=== PATIENT | female | born 2000 | race Caucasian/White ===

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

== ENCOUNTER 2018-08-27 12:52 | Emergency (ER) | payer OTHER ==
[2018-08-27 13:32] VITALS: BP 117/66
--- NOTE | 2018-08-27 13:57 | UC ---
Abdominal Pain Female HPI - HPI Summary HPI Summary: severe lower abdominal pain since this morning pain is cramping , 8 out of 10 , no radiation nothing made it better, nothing made it worse feeling much better now no n/v/d/c , no urinary symptoms - History of Current Complaint Chief Complaint: UCGI Stated Complaint: ABDOMINAL PAIN Time Seen by Provider: 08/27/18 13:29 Hx Obtained From: Patient Hx Last Menstrual Period: August 07 ?: No Onset/Duration: Gradual Onset, Lasting Days - 1, Still Present Timing: Constant Severity Initially: Severe Severity Currently: Mild Pain Intensity: 2 Location: Suprapubic Radiates: No Character: Cramping Aggravating Factor(s): Nothing Alleviating Factor(s): Nothing Associated Signs and Symptoms: Negative: Fever, Back Pain, Constipation, Blood in Stool, Urinary Symptoms, Decreased Appetite, Vaginal Bleeding, Vaginal Discharge, Nausea, Vomiting, Diarrhea Allergies/Adverse Reactions: Allergies Allergy/AdvReac Type Severity Reaction Status Date / Time No Known Allergies Allergy Verified 08/27/18 13:32 Home Medications: Home Medications buPROPion TAB* [Wellbutrin TAB*] 150 mg PO DAILY 08/27/18 [History Confirmed 11/08] PMH/Surg Hx/FS Hx/Imm Hx Previously Healthy: Yes - Surgical History Surgical History: Yes Surgery Procedure, Year, and Place: T&A, [place]2002, [facility] [place] - Family History Known Family History: Positive: None Negative: Cardiac Disease, Hypertension, Diabetes - Social History Alcohol Use: None Substance Use Type: None Smoking Status (MU): Never Smoked Tobacco - Immunization History Most Recent Influenza Vaccination: Not the Vaccination Up to Date: Yes Review of Systems All Other Systems Reviewed And Are Negative: Yes Is Patient Immunocompromised?: No Physical Exam Triage Information Reviewed: Yes Appearance: Well-Appearing, No Pain Distress, Well-Nourished Vital Signs: Initial Vital Signs Temp 98.0 F 08/27/18 13:24 Pulse 109 08/27/18 13:24 Resp 18 08/27/18 13:24 BP 117/66 08/27/18 13:24 Pulse Ox 100 08/27/18 13:24 Vital Signs Reviewed: Yes Eye Exam: Normal Eyes: Positive: Conjunctiva Clear ENT Exam: Normal ENT: Positive: Normal ENT inspection, Hearing grossly normal, Pharynx normal Neck exam: Normal Neck: Positive: Supple, Nontender Respiratory: Positive: Chest non-tender, Lungs clear, Normal breath sounds Cardiovascular: Positive: No Murmur, Tachycardia Abdomen Description: Positive: Nontender, Soft. Negative: CVA Tenderness (R), CVA Tenderness (L), Distended, Guarding Skin Exam: Normal Abd Pain Female Course/Dx - Differential Dx/Diagnosis Provider Diagnosis: Abdominal pain Discharge - Sign-Out/Discharge Documenting (check all that apply): Patient Departure All imaging exams completed and their final reports reviewed: No Studies - Discharge Plan Condition: Stable Disposition: HOME Patient Education Materials: Abdominal Pain (ED) Forms: *Work Release Referrals: Raquel May PA [Primary Care Provider] - 7 Days Additional Instructions: cont. with rest, increase fluid, may take Ibuprofen as needed for pain please go to ED if getting worse - Billing Disposition and Condition Condition: STABLE Disposition: Home
== END 2018-08-27 13:59 | disposition home or self-care (01) ==
LOC: UCCORT 12:52
DX: R10.30 Lower abdominal pain, unspecified (principal)
CPT/HCPCS: 81003; 99211; G0463

== ENCOUNTER 2018-11-05 10:47 | Emergency (ER) | payer OTHER ==
[2018-11-05 11:13] VITALS: BP 115/89
--- NOTE | 2018-11-05 11:25 | UC ---
Throat Pain/Nasal Kennedy HPI - HPI Summary HPI Summary: 18 y/o female presents to the urgent care c/o nasal congestion and yellowish nasal discharge for the past week. Symptoms started w/ common cold and body aches and chills. Now have worsen despite taken OTC medication. Cough is productive w/ yellowish phlegm at times and moderated PND. She is concerned because her sister was recently Dx w/ bronchitis. Pt denies fever, sore throat, SOB, wheezing, chest pain, abdominal pain, N/V/D, dizziness or rash. Pt requests antibiotics since she doesn't want to symptom to worsen. Pt is UTD w/ all vaccines for her age - History of Current Complaint Chief Complaint: UCRespiratory Stated Complaint: SINUS COMPLAINT Time Seen by Provider: 11/05/18 11:05 Hx Obtained From: Patient Hx Last Menstrual Period: 10/10/18 ?: No Onset/Duration: Gradual Onset, Lasting Weeks - 1 week, Still Present, Worse Since - 3 days Severity: Moderate Pain Intensity: 4 - sinus pain Pain Scale Used: 0-10 Numeric Cough: Sputum Appears - yellowish Associated Signs & Symptoms: Positive: Sinus Discomfort, Nasal Discharge - yellowish. Negative: Dysphagia, Wheezing, Fever, Rash Related History: Seasonal Allergies - Epiglottits Risk Factors Epiglottis Risk Factors: Negative - Allergies/Home Medications Allergies/Adverse Reactions: Allergies Allergy/AdvReac Type Severity Reaction Status Date / Time No Known Allergies Allergy Verified 11/05/18 11:07 PMH/Surg Hx/FS Hx/Imm Hx Previously Healthy: Yes - Pt denies PMHX - Surgical History Surgical History: Yes Surgery Procedure, Year, and Place: T&A, [place]2002, [facility] [place] - Family History Known Family History: Positive: None - Pt denies FMHX Negative: Cardiac Disease, Hypertension, Diabetes - Social History Occupation: Student Lives: With Family Alcohol Use: None Substance Use Type: None Smoking Status (MU): Never Smoked Tobacco - Immunization History Most Recent Influenza Vaccination: Not the 2014/2015 Season Vaccination Up to Date: Yes Review of Systems All Other Systems Reviewed And Are Negative: Yes Constitutional: Positive: Negative Skin: Positive: Negative Eyes: Positive: Negative ENT: Positive: Ear Ache - B/L ear pressure, Nasal Discharge - yellowish, Sinus Congestion, Sinus Pain/Tenderness, Other - PND Respiratory: Positive: Cough - dry Cardiovascular: Positive: Negative Gastrointestinal: Positive: Negative Genitourinary: Positive: Negative Motor: Positive: Negative Neurovascular: Positive: Negative Musculoskeletal: Positive: Negative Neurological: Positive: Headache Psychological: Positive: Negative Is Patient Immunocompromised?: No Physical Exam - Summary Physical Exam Summary: Vitals: reviewed General: Well developed, well-nourished female adolescent patient with NAD. Head and face: Normocephalic and atraumatic, Positive tenderness over the frontal and maxillary sinuses. Eyes: PERRLA, EOMI x 2. Normal conjunctiva. No eye discharge. ENT: Ears and TM with normal limits. Nose: edematous and erythematous nasal mucosa with with yellowish discharge and erythematous mucosa. Pharynx with erythema, no exudate. Yellowish PND Neck: Supple, no JVD, no carotid bruits and no lymphadenopathy. Lungs: clear, no rales, no rhonchi, no wheezes. CVS: RRR, S1 and S2 present no murmurs or gallops appreciated. Abdomen: soft nontender with positive bowel sounds. Extremities: no edema noted. Neuro: WNL. Skin: warm and dry Triage Information Reviewed: Yes Vital Signs: Initial Vital Signs Temp 98.4 F 11/05/18 11:08 Pulse 86 11/05/18 11:08 Resp 16 11/05/18 11:08 BP 115/89 11/05/18 11:08 Pulse Ox 98 11/05/18 11:08 Throat Pain/Nasal Course/Dx - Course Course Of Treatment: 18 y/o female presents to the urgent care c/o nasal congestion and yellowish nasal discharge for the past week. Symptoms started w/ common cold and body aches and chills. Now have worsen despite taken OTC medication. Cough is productive w/ yellowish phlegm at times and moderated PND. She is concerned because her sister was recently Dx w/ bronchitis. Pt denies fever, sore throat, SOB, wheezing, chest pain, abdominal pain, N/V/D, dizziness or rash. Pt requests antibiotics since she doesn't want to symptom to worsen. Pt is UTD w/ all vaccines for her age. Hx obtained. Pt w/ bacterial sinusitis on examination and Pt advised symptomatic treatment. However she still requests antibiotic treatment. Pt with 1 weeks of symptoms getting worse. Pt Rx Amoxicillin PO and flonase nasal spray as directed below. Discharge instructions explained to Pt. Advised to Return to the clinic or PCP if symptoms do not improve.Pt understood and agreed with plan of care. - Differential Dx/Diagnosis Differential Diagnosis/HQI/PQRI: Influenza, Laryngitis, Otitis Media, Pharyngitis, Sinusitis, URI Provider Diagnosis: Acute bacterial sinusitis Discharge - Sign-Out/Discharge Documenting (check all that apply): Patient Departure - D/C home All imaging exams completed and their final reports reviewed: No Studies - Discharge Plan Condition: Stable Disposition: HOME Prescriptions: Amoxicillin PO (*) [Amoxicillin 500 MG CAP*] 500 mg PO Q12H #20 cap Fluticasone NASAL SPRAY 50MCG* [Flonase NASAL SPRAY 50MCG*] 2 spray BOTH NARES DAILY #1 btl Patient Education Materials: Sinusitis (ED) Referrals: Raquel May PA [Primary Care Provider] - 3 Days Additional Instructions: 1- Please increase fluid intake and rest. take full course of antibiotics to avoid resistance. Take yogurts w/ probiotics or Culturelle to protect your GI system 2-Use Flonase as directed to help drain fluid. Also buy saline drops to clear sinuses 3-Please f/u w/ your PCP in 3 days if symptoms do not improve for further management and treatment - Billing Disposition and Condition Condition: STABLE Disposition: Home
== END 2018-11-05 11:43 | disposition home or self-care (01) ==
LOC: UCCORT 10:47
DX: J01.90 Acute sinusitis, unspecified (principal); B96.89 Other specified bacterial agents as the cause of diseases classified elsewhere
CPT/HCPCS: 99211; G0463

== ENCOUNTER 2018-12-20 14:23 | Emergency (ER) | payer OTHER ==
[2018-12-20 15:41] VITALS: BP 125/88
[2018-12-20] MEDS ORDERED: Ondansetron ODT TAB* 4 MG PO ONE (15:43)
--- NOTE | 2018-12-20 16:39 | UC ---
Nausea/Vomiting/Diarrhea HPI - HPI Summary HPI Summary: 18-year-old female presents with complaints of onset of nausea yesterday. Today she has had 3 or 4 episodes of loose stool with some abdominal cramping prior to defecation. She has a decreased appetite but has been able to tolerate fluids. No known fever. She is felt a little chilled yesterday. States she has also felt a little lightheaded today. She was presently having her menses. Denies sore throat, chest pain, palpitations, shortness of breath, vomiting, blood in stool, melena, back or flank pain, dysuria, frequency, or urgency. - History of Current Complaint Chief Complaint: UCGI Stated Complaint: NAUSEA Time Seen by Provider: 12/20/18 16:02 Hx Obtained From: Patient Hx Last Menstrual Period: 12/19/18 Pain Intensity: 5 - Allergies/Home Medications Allergies/Adverse Reactions: Allergies Allergy/AdvReac Type Severity Reaction Status Date / Time No Known Allergies Allergy Verified 12/20/18 15:32 Home Medications: Home Medications Norgestimate-Eth Estradiol(NF) [Ortho Tri-Cyclen (NF)] 1 tab PO DAILY 12/20/18 [ History Confirmed 12/20/18] PMH/Surg Hx/FS Hx/Imm Hx Previously Healthy: Yes - Denies significant PMH - Surgical History Surgical History: Yes Surgery Procedure, Year, and Place: T&A, [place]2002, [facility] [place] - Family History Known Family History: Positive: Non-Contributory - Social History Occupation: Employed Full-time Lives: With Family Alcohol Use: None Substance Use Type: None Smoking Status (MU): Never Smoked Tobacco - Immunization History Most Recent Influenza Vaccination: Not the 2014/2015 Season Vaccination Up to Date: Yes Review of Systems All Other Systems Reviewed And Are Negative: Yes Constitutional: Negative: Fever, Chills Skin: Positive: Negative ENT: Positive: Negative Respiratory: Positive: Negative Cardiovascular: Positive: Negative Gastrointestinal: Positive: Abdominal Pain - cramping, Diarrhea, Nausea. Negative: Vomiting Genitourinary: Negative: Dysuria, Hematuria, Frequency, Urgency, Vaginal/Penile Discharge Musculoskeletal: Positive: Negative Neurological: Positive: Negative Is Patient Immunocompromised?: No Physical Exam - Summary Physical Exam Summary: GENERAL APPEARANCE: Well developed, well nourished, alert and cooperative, and appears to be in no acute distress. EYES: Conjunctiva clear. No drainage. EARS: External auditory canals and tympanic membranes clear, hearing grossly intact. NOSE: No nasal discharge. THROAT: Pharynx normal. Tonsils surgically absent. Uvula midline. NECK: Neck supple, non-tender without lymphadenopathy. CARDIAC: Normal S1 and S2. No S3, S4 or murmurs. Rhythm is regular. There is no peripheral edema, cyanosis or pallor. Extremities are warm and well perfused. Capillary refill is less than 2 seconds. Peripheral pulses intact. LUNGS: Clear to auscultation without rales, rhonchi, wheezing or diminished breath sounds. ABDOMEN: Positive bowel sounds. Soft, nondistended, nontender. No guarding or rebound. No masses or hepatosplenomegally. No CVA tenderness. MUSKULOSKELETAL: ROM intact to all extremities. No joint erythema or tenderness. Normal muscular development. Normal gait. SKIN: Skin normal color, texture and turgor with no lesions or eruptions. Triage Information Reviewed: Yes Vital Signs: Initial Vital Signs Temp 99 F 12/20/18 15:34 Pulse 76 12/20/18 15:34 Resp 20 12/20/18 15:34 BP 125/88 12/20/18 15:34 Pulse Ox 100 12/20/18 15:34 Vital Signs Reviewed: Yes Naus/Vom/Diarrhea Course/Dx - Course Course Of Treatment: 18-year-old female presents with complaints of onset of nausea yesterday. Today she has had 3 or 4 episodes of loose stool with some abdominal cramping prior to defecation. She has a decreased appetite but has been able to tolerate fluids. No known fever. She is felt a little chilled yesterday. States she has also felt a little lightheaded today. She was presently having her menses. Denies sore throat, chest pain, palpitations, shortness of breath, vomiting, blood in stool, melena, back or flank pain, dysuria, frequency, or urgency. Afebrile. Vital signs stable. Patient had an overall unremarkable exam. She received ondansetron 4 mg in the clinic with improvement in her nausea. [id number] urinalysis showed trace leukocytes and 3+ blood likely from her menses. Urine culture is pending. Results reviewed with the patient. She was able to tolerate by PO fluids with no further episodes of diarrhea during the course of her stay. Recommending symptomatically treatment for acute diarrhea. I have given her prescription for ondansetron 4 mg every 8 hours as needed for nausea or vomiting. She is to return here or follow-up with her primary care provider in 2-3 days if symptoms are not improving. Anticipatory guidance and warning signs regarding evaluation in the emergency room were reviewed with patient. Verbalizes understanding and agrees with plan of care. - Differential Dx/Diagnosis Differential Diagnoses - Female: Appendicitis, Constipation, Diverticulitis, Ovarian Cyst, Urinary Tract Infection, Gastroenteritis (Viral), Gastroenteritis (Bacterial), Diarrhea, Colitis Provider Diagnosis: Acute diarrhea Condition At Discharge: Stable Discharge ED - Sign-Out/Discharge Documenting (check all that apply): Patient Departure All imaging exams completed and their final reports reviewed: No Studies - Discharge Plan Condition: Stable Disposition: HOME Prescriptions: Ondansetron ODT TAB* [Zofran 4 MG Odt TAB*] 4 mg PO Q8H PRN #6 tab.odt PRN Reason: Nausea/Vomiting Patient Education Materials: Acute Diarrhea (ED) Forms: *Work Release Referrals: Raquel May PA [Primary Care Provider] - 2 Days Additional Instructions: Acute diarrhea typically resolves on its own without treatment over 2-3 days. The most important consideration with diarrhea is avoiding dehydration. Be sure to drink plenty of fluids. Avoid beverages containing caffeine or artificial sweeteners as these can worsen symptoms. You have been prescribed ondansetron 4 mg every 8 hours as needed for nausea or vomiting. You were given a dose in the clinic at 3:50 pm. Be sure to eat a well balanced diet. Boiled starches and cereals (potatoes, rice , cream of wheat, oatmeal) as well as food such as crackers, toast, bananas, soups and boiled vegetables are usually recommended if you are having watery diarrhea. Be sure to use good hand hygiene to prevent spreading infection. Use an over the counter pain medication such as acetaminophen (Tylenol) or ibuprofen (Advil, Motrin) according to directions as needed for aches and pains. Return here or follow up with your primary care provider in 2-3 days if symptoms persist. Seek immediate medical attention in the emergency room if you have fever greater than 100.5 F, have severe abdominal pain, persistent vomiting, blood in your vomit or stool, you become weak or dizzy, or have any worsening of symptoms. - Billing Disposition and Condition Condition: STABLE Disposition: Home
== END 2018-12-20 16:47 | disposition home or self-care (01) ==
LOC: UCCORT 14:23
DX: R19.7 Diarrhea, unspecified (principal)
CPT/HCPCS: 81003; 84702; 87086; 99212; A9270-GY; G0463

== ENCOUNTER 2019-01-18 14:08 | Emergency (ER) | payer OTHER ==
--- OUTSIDE RECORDS SUMMARY | 2019-01-18 16:37 | XMS REPORT | Continuity of Care Document ---
:2000 External Reference #:[id number] Author Name Raquel May PA Address [address] [place] [address] Problems Description No Information Available Social History Type Date Description Comments Sex Unknown ETOH Use Denies alcohol use Recreational Drug Use Regularly uses Marijuana Tobacco Use Start: Unknown Patient is a current smoker, smokes some days Smoking Status Reviewed: 01/07/19 Patient is a current smoker, smokes some days Allergies, Adverse Reactions, Alerts Description No Known Drug Allergies Medications Active Medications SIG Qnty Indications Ordering Date Provider Prochlorperazine Maleate 1 tablet three 30tabs R11.0 Zaid Villagomez, 01/07 10mg times daily as DO Tablets needed for nausea Ketoconazole apply to 120ml B36.0 Zaid Villagomez, 08/15/2018 2% Shampoo affected area DO of damp skin, lather, leave on 5 minutes, and rinse Bupropion Hydrochloride 1 by mouth 90tabs F32.1 Zaid Villagomez, 08/15/2018 ER (XL) every day DO 150mg Tablets ER 24HR Nystatin-Triamcinolone Apply to 60gm L30.4 Zaid Villagomez, 04/01/2018 affected area DO 403706-8.1Unit/GM-% twice daily Cream until rash resolves Buspirone HCL 1 by mouth 90tabs F41.1 Zaid Villagomez, 03/21/2018 5mg Tablets every 8 hours DO as needed for anxiety Norgestimate-Eth 1 by mouth 28tabs Z30.41 Zaid Villagomez, 11/27/2017 Estradiol every day DO 0.25-35mg-mcg Tablets Triamcinolone Acetonide apply to 30gm Zaid Villagomez, 10/31/2017 0.1% affected area DO Cream twice a day for no longer than 10 days in a row Acyclovir 1 tablet by 30tabs A60.00 Zaid Villagomez, 08/27/2017 400mg Tablets mouth three DO times daily as needed Valacyclovir HCL Take 1 Tablet 270tabs Zaid Villagomez, 08/27/2017 1gm Tablets By Mouth Three DO Times Daily as Needed Immunizations CPT Code Status Date Vaccine Reaction Lot # [id number] Given 03/21/2018 Menactra/Menveo Meningococcal Vaccine [id number] 99833 Given 03/21/2018 Meningococcal B(Bexsero)protn otrMembran [id number] Vesicle Vccn 2 dose sche Q2039 Given 03/03/2018 Flu Vaccine NOS Q2039 Given 01/05/2012 Flu Vaccine NOS 37075 Given 12/17/2009 Gardasil-9 (HPV) Nonavalent 2-[place] [address] Given 12/17/2009 Menactra/Menveo Meningococcal Vaccine 23105 Given 12/17/2009 Tdap (Adacel) Ages 7 And Above Only 29671 Given 06/14/2009 Gardasil-9 (HPV) Nonavalent 2-[place] [address] Given 06/11/2009 Gardasil-9 (HPV) Nonavalent 2-[place] [address] Given 04/01/2009 Gardasil-9 (HPV) Nonavalent 2-[place] [address] Given 07/21/2008 Hepatitis B Vac Ped/Adolescent 3 Dose Schedule 83468 Given 08/22/2007 Varicella (Chicken Pox) Immunization 09788 Given 08/22/2007 Hepatitis A, Ped/Adolescent 2 Dose NYSIIS Schedule 59671 Given 06/14/2006 Hepatitis A, Ped/Adolescent 2 Dose Schedule U-Polio Given 12/15/2003 Polio (Non Billable) Unspecified 54052 Given 12/15/2003 MMR Virus Immunization 67026 Given 12/15/2003 DTaP Immunization 7 Yrs & Younger 14017 Given 02/22/2003 Varicella (Chicken Pox) Immunization 15558 Given 02/23/2000 MMR Virus Immunization U-Polio Given 07/11/1999 Polio (Non Billable) Unspecified 48729 Given 07/11/1999 DTaP Immunization 7 Yrs & Younger 81271 Given 07/11/1999 Hib ACTHiB Vaccine 4 Dose Schedule 01863 Given 01/06/1999 Hepatitis B Vac Ped/Adolescent 3 Dose Schedule 43245 Given 01/06/1999 DTaP Immunization 7 Yrs & Younger 00919 Given 01/06/1999 Hib ACTHiB Vaccine 4 Dose Schedule 80561 Given 1998 DTaP Immunization 7 Yrs & Younger 80844 Given 1998 Hib ACTHiB Vaccine 4 Dose Schedule U-Polio Given 1998 Polio (Non Billable) Unspecified U-Polio Given 1998 Polio (Non Billable) Unspecified 03032 Given 1998 DTaP Immunization 7 Yrs & Younger 12901 Given 1998 Hib ACTHiB Vaccine 4 Dose Schedule 28903 Given 1998 Hepatitis B Vac Ped/Adolescent 3 Dose Schedule 48642 Given 1998 Hepatitis B Vac Ped/Adolescent 3 Dose Schedule 82421 Refused 08/15/2018 Meningococcal B(Bexsero)protn otrMembran Vesicle Vccn 2 dose sche Vital Signs Date Vital Result Comment 01/07/2019 9:24am Body Temperature 99.5 F Weight 168.00 lb Heart Rate 110 /min BP Systolic 122 mmHg BP Diastolic 72 mmHg Respiratory Rate 18 /min Height 67 inches 5'7" O2 % BldC Oximetry 99 % BMI (Body Mass Index) 26.3 kg/m2 08/26/2018 2:55pm Weight 154.00 lb Heart Rate 78 /min BP Systolic 120 mmHg BP Diastolic 80 mmHg Respiratory Rate 18 /min Height 67 inches 5'7" BMI (Body Mass Index) 24.1 kg/m2 Results Test Date Facility Test Result H/L Range Note Laboratory test 12/20/2018 [facility] Poc Negative Negative 1 finding , Urine Urine Culture And 12/20/2018 [facility] Urine SEE RESULT 2 , 3 Sensitivities Culture BELOW Poc Urinalysis 12/20/2018 [facility] Poc Glucose, Negative Negative Urine Poc Bilirubin, Urine Negative Negative Poc Ketone, Urine Negative Negative Poc Specific [place], Urine 1.015 Normal 1.010-1.030 Poc Blood, Urine 3+ Abnormal Negative Poc pH, Urine 6.5 Normal 5-9 Poc Protein, Urine Negative Negative Poc Urobilinogen, Urine 0.2 Negative Poc Nitrite, Urine Negative Negative Poc Leukocytes, Urine Trace Abnormal Negative Poc Color, Urine [place] Poc Clarity, Urine Slightly Cloudy 4 1 [employer] Operator: [id number] Test Disclaimer: Positive bacteria, red blood cells, white blood cells, early , low specific gravity, and other factors may cause false positive or negative results. It is recommended to retest unexpected and borderline results with a serum test when applicable. If is still suspected, please repeat test after 48 to 72 hours. 2 [id number] SEE RESULT BELOW Name: LAZARO RODRIGUEZ : [address]: Chayo Berman MD Acct: [id number] Unit: [id number] AGE: 18 Location: [facility] Re12/20/18 SEX: F Status: DEP ER SPEC: [id number] JAN: 12/20/18-3949 [facility] DR: Clarisa Simon MD REQ: [id number] RECD: 12/21/18599 STATUS: LUIS ROMAN DR: Raquel Brand [facility] _ SOURCE: URINE SPDESC: ORDERED: Urine Culture COMMENTS: [id number] Procedure Result Reported Site Urine Culture Final 12/22/18- 1225 ML No Growth (<1,000 CFU/mL) * ML - Main Lab . END OF REPORT DEPARTMENT OF PATHOLOGY, [address] [place] [address] Thong Galdamez M.D. Director [facility] # [id number] 4 [employer] Operator: [id number] Procedures Date Code Description Status 08/15/2018 78830 Brief Emotional/Behav Assessment W/ Scoring Doc Per Completed Standard Inst Medical Devices Description No Information Available Encounters Type Date Location Provider Dx Diagnosis Office Visit 08/26/2018 [facility] Raquel May PA M25.512 Pain in LEFT 3:00p shoulder M25.512 Pain in LEFT shoulder Office Visit 08/15/2018 11:30a [facility] Raquel May PA B36.0 Pityriasis versicolor F32.1 Major depressive disorder, single episode, moderate Assessments Date Code Description Provider 01/07/2019 F32.1 Major depressive disorder, single episode, Raquel May PA moderate 01/07/2019 F41.1 Generalized anxiety disorder Raquel May PA 01/07/2019 N94.3 Premenstrual tension syndrome Raquel May PA 01/07/2019 R11.0 Nausea Raquel May PA 01/07/2019 N94.3 Premenstrual tension syndrome Schedule, Laboratory 08/26/2018 M25.512 Pain in LEFT shoulder Raquel May PA 08/26/2018 M25.512 Pain in LEFT shoulder Raquel May PA 08/15/2018 B36.0 Pityriasis versicolor Raquel May PA 08/15/2018 F32.1 Major depressive disorder, single episode, Raquel May PA moderate Plan of Treatment 01/07/2019 - Raquel May, PAF32.1 Major depressive disorder, single episode , moderateComments:Worsening off of medicationWill resume bupropionAdvised may take 2-4 weeks to notice improvementFollow up:PrnF41.1 Generalized anxiety disorderComments:Advised to resume cffrnhedfM86.3 Premenstrual tension syndromeComments:Will check labs for evalSuggest trying different OCPR11.0 NauseaNew Medication:Prochlorperazine Maleate 10 mg - 1 tablet three times daily as needed for nauseaComments:Randolph dietProchlorperazine to help with nauseaPush fluidsCall with worsening/persisting symptoms Functional Status Description No Information Available Mental Status Description No Information Available Referrals Description No Information Available
[2019-01-18 16:51] VITALS: BP 132/86
--- NOTE | 2019-01-18 17:12 | UC ---
FLU HPI - HPI Summary HPI Summary: 18-year-old female presents with 2 week history of flu-like illness including general malaise, fatigue, swollen lymph nodes, mild sore throat, muscle aches, upper abdominal pain, and nausea. Patient states she was seen by her primary care provider last week for the same and was tested for anemia. She is requesting testing for Lyme disease at this time. No known tick bite but states she is outdoors often. Denies fever, chills, rash, nasal congestion, runny nose, ear pain, dysphagia, cough, chest pain, shortness of breath, vomiting, diarrhea, dysuria, frequency, urgency, or vaginal discharge. - History of Current Complaint Chief Complaint: UCGeneralIllness Stated Complaint: FLU LIKE SYMPTOMS Time Seen by Provider: 01/18/19 17:02 Hx Obtained From: Patient Hx Last Menstrual Period: 01/13/19 Pain Intensity: 5 - Allergy/Home Medications Allergies/Adverse Reactions: Allergies Allergy/AdvReac Type Severity Reaction Status Date / Time No Known Allergies Allergy Verified 01/18/19 16:40 Home Medications: Home Medications Ibuprofen TAB* [Advil TAB*] 400 mg PO Q6H PRN 01/18/19 [History Confirmed ] buPROPion HCl [Bupropion HCl Xl] 150 mg PO DAILY 01/18/19 [History Confirmed ] busPIRone TAB* [Buspar TAB*] 5 mg PO DAILY PRN 01/18/19 [History Confirmed 01/18] PMH/Surg Hx/FS Hx/Imm Hx Previously Healthy: Yes - Surgical History Surgical History: Yes Surgery Procedure, Year, and Place: T&A, ~2002, [facility] [place] - Family History Known Family History: Positive: Non-Contributory - Social History Occupation: Unemployed Lives: With Family Alcohol Use: None Substance Use Type: None Smoking Status (MU): Never Smoked Tobacco - Immunization History Most Recent Influenza Vaccination: Not the 2015/2015 Season Vaccination Up to Date: Yes Review of Systems All Other Systems Reviewed And Are Negative: Yes Constitutional: Negative: Fever, Chills Skin: Negative: Rash ENT: Positive: Sore Throat. Negative: Ear Ache, Nasal Discharge, Sinus Congestion, Sinus Pain/Tenderness Respiratory: Negative: Shortness Of Breath, Cough Cardiovascular: Negative: Palpitations, Chest Pain Gastrointestinal: Positive: Abdominal Pain, Nausea. Negative: Vomiting, Diarrhea Genitourinary: Negative: Dysuria, Hematuria, Frequency, Urgency, Vaginal/Penile Discharge, Abnormal Bleeding Musculoskeletal: Positive: Myalgia Neurological: Positive: Headache. Negative: Weakness, Paresthesia, Numbness Is Patient Immunocompromised?: No Physical Exam - Summary Physical Exam Summary: GENERAL APPEARANCE: Well developed, well nourished, alert and cooperative, and appears to be in no acute distress. EYES: Conjunctiva clear. No drainage. EARS: External auditory canals and tympanic membranes clear, hearing grossly intact. NOSE: No nasal discharge. THROAT: Pharynx normal. Surgically absent tonsils. Uvula midline. NECK: Neck supple, non-tender without lymphadenopathy. CARDIAC: Normal S1 and S2. No S3, S4 or murmurs. Rhythm is regular. There is no peripheral edema, cyanosis or pallor. Extremities are warm and well perfused. Capillary refill is less than 2 seconds. Peripheral pulses intact. LUNGS: Clear to auscultation without rales, rhonchi, wheezing or diminished breath sounds. ABDOMEN: Positive bowel sounds. Soft, nondistended abdomen. Mild RUQ and LUQ tenderness without guarding or rebound. No masses or hepatosplenomegally. MUSKULOSKELETAL: ROM intact to all extremities. No joint erythema or tenderness. Normal muscular development. Normal gait. SKIN: Skin normal color, texture and turgor with no lesions or eruptions. Triage Information Reviewed: Yes Vital Signs: Initial Vital Signs Temp 98.8 F 01/18/19 16:43 Pulse 87 01/18/19 16:43 Resp 16 01/18/19 16:43 BP 132/86 01/18/19 16:43 Pulse Ox 97 01/18/19 16:43 Vital Signs Reviewed: Yes Flu Course/Dx - Course Course Of Treatment: 18-year-old female presents with 2 week history of flu-like illness including general malaise, fatigue, swollen lymph nodes, mild sore throat, muscle aches, upper abdominal pain, and nausea. Patient states she was seen by her primary care provider last week for the same and was tested for anemia. She is requesting testing for Lyme disease at this time. No known tick bite but states she is outdoors often. Denies fever, chills, rash, nasal congestion, runny nose, ear pain, dysphagia, cough, chest pain, shortness of breath, vomiting, diarrhea, dysuria, frequency, urgency, or vaginal discharge. Afebrile. Vital signs stable. Patient had some mild right upper quadrant and left upper quadrant tenderness without rebound or guarding, no hepatosplenomegaly, and otherwise unremarkable exam. We discussed that I don't have a good explanation for her symptoms at this time but we will perform testing for post Lyme disease and mononucleosis to rule out these causes. Recommending symptomatic treatment at this time. She is to follow-up with her primary care provider within 5 days for recheck of symptoms. Anticipatory guidance and warning symptoms were reviewed with the patient. Verbalized understanding and agrees with plan of care. - Differential Dx/Diagnosis Differential Diagnosis/HQI/PQRI: Other - Lyme disease, mononucleosis Provider Diagnosis: Malaise and fatigue Discharge ED - Sign-Out/Discharge Documenting (check all that apply): Patient Departure All imaging exams completed and their final reports reviewed: No Studies - Discharge Plan Condition: Stable Disposition: HOME Patient Education Materials: Fatigue (ED) Referrals: Raquel May PA [Primary Care Provider] - 5 Days Additional Instructions: Do not have a good explanation for your symptoms at this time. We we'll test you for both line and mono today. We will contact you if I therapies are positive. Plenty of rest. Drink plenty of fluids. Take acetaminophen (Tylenol) or ibuprofen (Advil, Motrin) according to directions as needed for aches pain or fever. Follow-up with your primary care provider within the next 5 days for a recheck of her symptoms. Seek immediate medical attention in the emergency room if you develop a fever greater than 100.5 F, have chest pain, difficulty breathing, severe abdominal pain, persistent or projectile vomiting, blood in your vomit or bowel movement, or any worsening of symptoms. - Billing Disposition and Condition Condition: STABLE Disposition: Home
== END 2019-01-18 17:29 | disposition home or self-care (01) ==
LOC: UCCORT 14:08
DX: R53.81 Other malaise (principal); R53.83 Other fatigue
CPT/HCPCS: 36415; 86308; 86618; 99211; G0463

== ENCOUNTER 2019-03-30 11:36 | Emergency (ER) | payer OTHER ==
--- OUTSIDE RECORDS SUMMARY | 2019-03-30 12:15 | XMS REPORT | Continuity of Care Document ---
:2000 External Reference #:[id number] Author Name Raquel May PA Address [address] [place] [id number] Problems Description No Information Available Social History [...] Medications SIG Qnty Indications Ordering Date Provider Fluconazole 1 tablet by 2tabs Zaid Villagomez, 03/14/2019 200mg Tablets mouth once DO daily for 1 week Selenium Sulfide apply to 180ml B36.0 Zaid Villagomez, 02/11/2019 2.25% affected areas DO Shampoo and lather with water; leave on for 10 minutes, then rinse thoroughly; repeat daily x 1 week Alprazolam 1 by mouth 15tabs F41.1 Zaid Villagomez, 02/11/2019 0.25mg Tablets daily as needed DO anxiety Prochlorperazine Maleate 1 tablet three 30tabs R11.0 Zaid Villagomez, 01/07 10mg times daily as DO Tablets needed for nausea Nystatin-Triamcinolone Apply to 60gm L30.4 Zaid Villagomez, 04/01/2018 affected area DO 708991-6.1Unit/GM-% twice daily Cream until rash resolves Buspirone HCL 1 by mouth 90tabs F41.1 Zaid Villagomez, 03/21/2018 5mg Tablets every 8 hours DO as needed for anxiety Acyclovir 1 tablet by 30tabs A60.00 Zaid Villagomez, 08/27/2017 400mg Tablets mouth three DO times daily as needed Valacyclovir HCL Take 1 Tablet 270tabs Zaid Villagomez, 08/27/2017 1gm Tablets By Mouth Three DO Times Daily as Needed History Medications Amoxicillin 1 pill by 14tabs J01.90 Zaid Villagomez, 02/11/2019 - 875mg mouth twice a DO 02/18/2019 Tablets day x 7 days Venlafaxine HCL ER 1 by mouth 30caps Zaid Villagomez, 01/09/2019 - 75mg every day DO 03/14/2019 Caps ER 24HR Immunizations CPT Code Status Date Vaccine Reaction Lot # [id number] Given 03/21/2018 Menactra/Menveo Meningococcal Vaccine [id number] 95578 Given 03/21/2018 Meningococcal B(Bexsero)protn otrMembran [id number] Vesicle Vccn 2 dose sche Q2039 Given 03/03/2018 Flu Vaccine NOS Q2039 Given 01/05/2012 Flu Vaccine NOS 28209 Given 12/17/2009 Gardasil-9 (HPV) Nonavalent 2-[place] [address] Given 12/17/2009 Menactra/Menveo Meningococcal Vaccine 35099 Given 12/17/2009 Tdap (Adacel) Ages 7 And Above Only [address] Given 06/14/2009 Gardasil-9 (HPV) Nonavalent 2-[place] [address] Given 06/11/2009 Gardasil-9 (HPV) Nonavalent 2-[place] [address] Given 04/01/2009 Gardasil-9 (HPV) Nonavalent 2-[place] [address] Given 07/21/2008 Hepatitis B Vac Ped/Adolescent 3 Dose Schedule 55134 Given 08/22/2007 Varicella (Chicken Pox) Immunization 54230 Given 08/22/2007 Hepatitis A, Ped/Adolescent 2 Dose NYSIIS Schedule 27124 Given 06/14/2006 Hepatitis A, Ped/Adolescent 2 Dose Schedule U-Polio Given 12/15/2003 Polio (Non Billable) Unspecified 59610 Given 12/15/2003 MMR Virus Immunization 86727 Given 12/15/2003 DTaP Immunization 6 Yrs & Younger 03012 Given 02/22/2003 Varicella (Chicken Pox) Immunization 89897 Given 02/23/2000 MMR Virus Immunization U-Polio Given 07/11/1999 Polio (Non Billable) Unspecified 83759 Given 07/11/1999 DTaP Immunization 6 Yrs & Younger 21107 Given 07/11/1999 Hib ACTHiB Vaccine 4 Dose Schedule 59355 Given 01/06/1999 Hepatitis B Vac Ped/Adolescent 3 Dose Schedule 29500 Given 01/06/1999 DTaP Immunization 6 Yrs & Younger [address]4450 Given 01/06/1999 Hib ACTHiB Vaccine 4 Dose Schedule 45343 Given 1998 DTaP Immunization 6 Yrs & Younger 72880 Given 1998 Hib ACTHiB Vaccine 4 Dose Schedule U-Polio Given 1998 Polio (Non Billable) Unspecified U-Polio Given 1998 Polio (Non Billable) Unspecified 37059 Given 1998 DTaP Immunization 6 Yrs & Younger 35459 Given 1998 Hib ACTHiB Vaccine 4 Dose Schedule 36376 Given 1998 Hepatitis B Vac Ped/Adolescent 3 Dose Schedule 51146 Given 1998 Hepatitis B Vac Ped/Adolescent 3 Dose Schedule 08859 Refused 08/15/2018 Meningococcal B(Bexsero)protn otrMembran Vesicle Vccn 2 dose sche Vital Signs Date Vital Result Comment 03/14/2019 9:24am Weight 175.00 lb Heart Rate 72 /min BP Systolic 126 mmHg BP Diastolic 70 mmHg Respiratory Rate 18 /min Height 67 inches 5'7" BMI (Body Mass Index) 27.4 kg/m2 02/11/2019 9:35am Body Temperature 98.6 F Weight 165.00 lb Heart Rate 78 /min BP Systolic 128 mmHg BP Diastolic 74 mmHg Respiratory Rate 18 /min Height 67 inches 5'7" BMI (Body Mass Index) 25.8 kg/m2 Results Test Acquired Date Facility Test Result H/L Range Note Drugs Of 02/11/2019 [facility] Amphetamines,Ur NEGATIVE <1000 ng/mL Abuse,Urine-[facility] ine Barbiturates,Urine NEGATIVE <200 ng/mL Benzodiazepines, Urine NEGATIVE <200 ng/mL Bupernorphrine/Norbu,Urine NEGATIVE <10 ng/mL Cocaine Metabolites,Urine NEGATIVE <300 ng/mL Methadone,Urine NEGATIVE <300 ng/mL Opiates,Urine NEGATIVE <300 ng/mL Oxycodone,Urine NEGATIVE <100 ng/mL Phencyclidine,Urine NEGATIVE <25 ng/mL Cannabinoids,Urine POSITIVE Abnormal <50 ng/mL Urine Culture 01/28/2019 [facility] Urine Culture MIXED URETHRAL F 1, 2 (315)- - <SEE NOTE> Quantity > 100,000 CFU/mL 3 Laboratory test 01/28/2019 [facility] HIV Screen Non Reactive Non Reactive 4 finding (315)- - 4TH Gen Reflex Laboratory test 01/28/2019 [facility] CK 54 U/L Normal 26-192 finding (315)- - Troponin-I < 0.015 ng/mL 5 Comprehensive 01/28/2019 [facility] Glucose 90 mg/dL Normal 74-106 Metabolic Panel (315)- - BUN 12 mg/dL Normal 7-18 Creatinine 1.1 mg/dL Normal 0.6-1.3 Glom Filtration Rate, Estimate >60 mL/min >60 If >60 mL/min >60 6 BUN/Creat 10.9 ratio Sodium 140 mmol/L Normal 136-145 Potassium 3.5 mmol/L Normal 3.5-5.1 Chloride 103 mmol/L Normal 98-107 Carbon Dioxide 25 mmol/L Normal 21-32 Anion Gap 12 mEq/L Normal 8-16 Calcium 9.0 mg/dL Normal 8.5-10.1 Total Protein 8.5 g/dL High 6.4-8.2 Albumin 4.7 g/dL Normal 3.4-5.0 Globulin 3.8 g/dL Normal 1.9-4.3 Alb/Glob 1.2 ratio Bilirubin,Total 0.6 mg/dL Normal 0.2-1.0 Sgot/Ast 9 U/L Low 15-37 7 SGPT/Alt 18 U/L Normal 12-78 Alkaline Phosphatase 69 U/L Normal 45-117 Culture If 01/28/2019 [facility] Culture If CULTURE TO 8 Indicated Comment (315)- - Indicated Comment FOLLO <SEE NOTE> Source: URINE, CLEAN CAT <SEE NOTE> 9 Urinalysis With 01/28/2019 [facility] Urine Color Dark- Yellow Yellow Microscopic (315)- - Urine Clarity Slightly Cloudy Clear Urine Glucose - Dipstick NEGATIVE mg/dL Negative Urine Bilirubin - Dipstick NEGATIVE Negative Urine Ketone 10 mg/dL Abnormal Negative Urine Specific [place] 1.037 High 1.010-1.030 Urine Blood NEGATIVE 0-2 Urine PH 6.0 Low 6.5-7.5 Urine Protein - Dipstick 70 mg/dL Abnormal Negative Urine Urobilinogen - Dipstick 3.0 mg/dL < 2.0 Urine Nitrite - Dipstick NEGATIVE Negative Urine Leuk Esterase SMALL Abnormal Negative Urine RBC 11-20 rbc/hpf 0-2 Urine WBC 21-30 wbc/hpf 0-5 Urine Epithelial Cells MANY /lpf None Seen Urine Bacteria MODERATE Abnormal None Seen Urine Mucus LARGE None Seen Source: URINE, CLEAN CAT <SEE NOTE> 10 Urine HCG 01/28/2019 [facility] Urine HCG NEGATIVE Negative 11 (Qualitative) (315)- - (Qualitative) Source: URINE, CLEAN CAT <SEE NOTE> 12 CBS W/Automated 01/28/2019 [facility] White Blood 4.5 K/ uL Normal 3.1-10.7 Diff (315)- - Count Red Blood Count 5.34 M/uL Normal 3.90-5.40 Hemoglobin 15.9 gm/dL High 11.6-15.8 Hematocrit 46.9 % High 36.0-46.1 Mean Cell Volume 87.8 fl Normal 80.9-99.0 Mean Corpuscular HGB 29.8 pg Normal 25.9-32.7 Mean Corpuscular HGB Conc 33.9 g/dL Normal 30.8-34.3 Platelet Count 289 K/uL Normal 155-360 Red Cell Distri Width SD 40.4 fl Normal 36-47 Red Cell Distri Width %CV 12.6 % Normal 11.7-14.4 Mean Platelet Volume 10.2 fl Normal 8.9-12.4 Neut% 48.2 % Normal 28.0-68.0 Lymph % 41.1 % Normal 20.0-42.0 Early % 9.4 % Normal 4.3-13.2 Eo% 0.9 % Normal 0.0-6.6 Bas% 0.2 % Normal 0.0-1.1 Immature Grans 0.2 % Normal 0.0-5.0 NRBC % 0.0 /100WBC < 10/ 100 WBC Neut# 2.16 K/uL Normal 1.8-7.0 Lymph # 1.84 K/uL Normal 1.0-4.0 Early # 0.42 K/uL Normal 0.3-0.9 Eos # 0.04 K/uL Normal 0.0-0.5 Baso # 0.01 K/uL Normal 0.0-0.1 Immature Grans Absolute 0.01 K/uL NRBC # 0.00 K/uL Laboratory test 01/18/2019 [facility] Monospot Negative Negative 13, 14 finding Lyme Screen w/ Reflex to WB Negative Negative 15 Urine HCG 01/08/2019 [facility] Urine HCG NEGATIVE Negative 16, 17 (Qualitative) (315)- - (Qualitative) Source: URINE, CLEAN CAT <SEE NOTE> 18 Urinalysis With 01/08/2019 [facility] Urine Color Yellow Yellow Microscopic (315)- - Urine Clarity Clear Clear Urine Glucose - Dipstick NEGATIVE mg/dL Negative Urine Bilirubin - Dipstick NEGATIVE Negative Urine Ketone 150 mg/dL Abnormal Negative Urine Specific [place] 1.028 Normal 1.010-1.030 Urine Blood NEGATIVE 0-2 Urine PH 6.0 Low 6.5-7.5 Urine Protein - Dipstick TRACE mg/dL Negative Urine Urobilinogen - Dipstick 2.0 mg/dL < 2.0 Urine Nitrite - Dipstick NEGATIVE Negative Urine Leuk Esterase TRACE Abnormal Negative Urine RBC 3-5 rbc/hpf 0-2 Urine WBC 3-5 wbc/hpf 0-5 Urine Epithelial Cells MANY /lpf None Seen Urine Bacteria FEW None Seen Urine Mucus MODERATE None Seen Source: URINE, CLEAN CAT <SEE NOTE> 19 CBC with Auto Diff-fcmg 01/07/2019 [facility] 9.4 K/uL 4.1-11.0 RBC 4.89 M/uL 4.00-5.40 Hemoglobin 14.9 gm/dL 12.0-16.0 Hematocrit 43.5 % 36.0-47.0 MCV 88.9 fL 80.0-97.0 MCH 30.6 pg 27.0-32.0 MCHC 34.4 g/dL 32.0-36.0 RDW 13.7 % 11.5-14.5 PLT Count 283 K/ul 140-400 MPV 8.9 FL 7.1-10.7 Neutrophil 80.6 % High 35.0-75.0 Lymphocyte 13.4 % Low 16.0-52.0 Monocyte 5.5 % 2.0-10.0 Eosinophil 0.2 % 0.0-5.0 Basophil 0.3 % 0.0-4.0 Abs Neutrophils 7.6 K/uL 2.1-8.0 Abs Lymphocytes 1.3 K/uL 0.8-5.5 Abs Monocytes 0.5 K/uL 0.1-1.0 Abs Eosinophils 0.0 K/uL 0.0-0.5 Abs Basophils 0.0 K/uL 0.0-0.3 Comprehensive Met Panel-FCMG 01/07/2019 [facility] Sodium 139 mmol/L 135- 146 20 Potassium 4.2 mmol/L 3.5-5.2 Chloride# 102 mmol/L 97-110 21 Carbon Dioxide 25 mmol/L 24-34 Calcium 9.7 mg/dL 8.5-10.5 22 Glucose 90 mg/dL 70-105 BUN 11 mg/dL 6-26 Creatinine 0.9 mg/dL 0.5-1.4 Total Protein 7.2 g/dL 6.0-8.0 Albumin 4.8 g/dL 3.6-4.9 Globulin 2.4 g/dL 2.0-3.5 A/G Ratio 2.0 Ratio 1.0-2.2 Total Bilirubin 0.6 mg/dL 0.1-1.3 Alkaline Phosphatase 59 U/L 24-140 Alt 14 U/L 3-42 Ast 16 U/L 8-42 Anion Gap 12 mmol/L 5-15 23 Female Egfr 96 >60 24 Male Egfr 124 >60 25 Laboratory test 12/20/2018 [facility] Poc , Negative Negative 26 finding Urine Urine Culture And 12/20/2018 [facility] Urine Culture SEE RESULT 27, 28 Sensitivities BELOW Poc Urinalysis 12/20/2018 [facility] Poc Glucose, Negative Negative Urine Poc Bilirubin, Urine Negative Negative Poc Ketone, Urine Negative Negative Poc Specific [place], Urine 1.015 Normal 1.010-1.030 Poc Blood, Urine 3+ Abnormal Negative Poc pH, Urine 6.5 Normal 5-9 Poc Protein, Urine Negative Negative Poc Urobilinogen, Urine 0.2 Negative Poc Nitrite, Urine Negative Negative Poc Leukocytes, Urine Trace Abnormal Negative Poc Color, Urine [place] Poc Clarity, Urine Slightly Cloudy 29 1 DIZZY/FELL/HARD TIME BREATHING 2 MIXED URETHRAL [place]ER[place]O 3 > 100,000 CFU/mL SPECIMEN IS A MIX OF GRAM POSITIVE ORGANISMS CONSISTENT WITH SKIN VAGINAL CONTAMINATION. SUGGEST REPEAT SPECIMEN IF CLINICALLY INDICATED. 4 Performed at: RN - [facility] [address] [id number] .Net Developer: Heidi Cruz MD, Phone: [phone] 5 0.0 - 0.045 ng/mL: Normal 0.046 - 0.5 ng/mL: Suggestive 0.6 - 1.5 ng/mL: Consistent 6 Note: Persistent reduction for 3 months or more in an eGFR <60 mL/min/1.73 m2 defines CKD. Patients with eGFR values >/=60 mL/min/1.73 m2 may also have CKD if evidence of persistent proteinuria is present. The original MDRD equation for estimated GFR is not valid for patients less than 18 years of age. Additional information may be found at www.kdoqi.org. 7 Values below the stated reference ranges of AST and ALT can be seen in normal populations. Clinical correlation is suggested. 8 CULTURE TO FOLLOW 9 URINE, CLEAN CATCH 10 URINE, CLEAN CATCH 11 FIRST MORNING SPECIMENS GENERALLY CONTAIN THE HIGHEST CONCENTRATION OF HCG AND ARE RECOMMENDED FOR EARLY DETECTION OF . Method: Quidel QuickVue One-Step Immunoassay 12 URINE, CLEAN CATCH 13 [id number] Would you like an EBV if Monospot is Negative?: N 15 [id number] 16 ABD AND HIP PAIN/ DIZZY 17 FIRST MORNING SPECIMENS GENERALLY CONTAIN THE HIGHEST CONCENTRATION OF HCG AND ARE RECOMMENDED FOR EARLY DETECTION OF . Method: Quidel QuickVue One-Step Immunoassay 18 URINE, CLEAN CATCH 19 URINE, CLEAN CATCH 20 Updated reference range on new analyzer 21 Updated reference range on new analyzer 22 Updated reference range 08-21-2018 23 Updated Reference Range 24 Concerning GFR Guidelines for Americans: Normal function or mild renal disease, if clinically at risk: >/= 60 mL/min Moderately decreased: 30-59 Severely decreased: 15-29 Renal failure: <15 There is reduced accuracy above 60ml/min/1.73 m squared, but the numeric value may be clinically useful in the near 60 range 25 Concerning GFR Guidelines: Normal function or mild renal disease, if clinically at risk: >/= 60 mL/min Moderately decreased: 30-59 Severely decreased: 15-29 Renal failure: <15 There is reduced accuracy above 60ml/min/1.73 m squared, but the numeric value may be clinically useful in the near 60 range Glomerular Filtration Rate (GFR) is estimated based on the CKD-EPI equation, which assumes a steady state for creatinine as recommended by the National Kidney Disease Education Program in conjunction with the National Institutes of Health and the National Kidney Foundation. Clinical conditions in which it may be necessary to measure GFR by using clearance methods include extremes of age and body size, severe malnutrition or obesity, diseases of skeletal muscle, paraplegia or quadriplegia, vegetarian diet, rapidly changing kidney function, and calculation of the dose of potentially toxic drugs that are excreted by the kidneys. 26 Project Reservoir Engineer: [id number] Test Disclaimer: Positive bacteria, red blood cells, white blood cells, early , low specific gravity, and other factors may cause false positive or negative results. It is recommended to retest unexpected and borderline results with a serum test when applicable. If is still suspected, please repeat test after 48 to 72 hours. 27 [id number] 28 SEE RESULT BELOW Name: LAZARO RODRIGUEZ : [address]: Chayo Berman MD Acct: [id number] Unit: [id number] AGE: 18 Location: [facility] Re12/20/18 SEX: F Status: DEP ER SPEC: [id number] JAN: 12/20/18-2039 [facility] DR: Clarisa Simon MD REQ: [id number] RECD: [id number]/21/188776 STATUS: LUIS ROMAN DR: [facility] _ SOURCE: URINE SPDESC: ORDERED: Urine Culture COMMENTS: [id number] Procedure Result Reported Site Urine Culture Final 12/22/18- 1225 ML No Growth (<1,000 CFU/mL) * ML - Main Lab . END OF REPORT DEPARTMENT OF PATHOLOGY, [address] [place] [address] Thong Galdamez M.D. Director [facility] # [id number] 29 Project Reservoir Engineer: [id number] Procedures Description No Information Available Medical Devices Description No Information Available Encounters Type Date Location Provider Dx Diagnosis Office Visit 02/11/2019 Raquel Sharma PA F41.1 Generalized anxiety 9:30a disorder J01.90 Acute sinusitis, unspecified M25.551 Pain in RIGHT hip B36.0 Pityriasis versicolor Office Visit 01/07/2019 9:30a [facility] Raquel May PA F32.1 Major depressive disorder, single episode, moderate F41.1 Generalized anxiety disorder N94.3 Premenstrual tension syndrome R11.0 Nausea Z32.02 Encounter for test, result negative Assessments Date Code Description Provider 03/14/2019 F41.1 Generalized anxiety disorder Raquel May PA 03/14/2019 M25.551 Pain in RIGHT hip Raquel May PA 03/14/2019 B36.0 Pityriasis versicolor Raquel May PA 02/11/2019 F41.1 Generalized anxiety disorder Raquel May PA 02/11/2019 J01.90 Acute sinusitis, unspecified Raquel May PA 02/11/2019 M25.551 Pain in RIGHT hip Raquel May PA 02/11/2019 B36.0 Pityriasis versicolor Raquel May PA 02/11/2019 F41.1 Generalized anxiety disorder [facility] 01/07/2019 N94.3 Premenstrual tension syndrome Raquel May PA 01/07/2019 F32.1 Major depressive disorder, single episode, Raquel May PA moderate 01/07/2019 F41.1 Generalized anxiety disorder Raquel May PA 01/07/2019 N94.3 Premenstrual tension syndrome Raquel May PA 01/07/2019 R11.0 Nausea Raquel May PA 01/07/2019 Z32.02 Encounter for test, result negative Raquel aMy PA 01/07/2019 N94.3 Premenstrual tension syndrome Schedule, Laboratory 01/07/2019 N94.3 Premenstrual tension syndrome [facility] Plan of Treatment 03/14/2019 - Raquel May, PAF41.1 Generalized anxiety disorderComments: Doing wellFollow up:6 fbnxxcA68.551 Pain in RIGHT hipComments:Will refer for PTB36.0 Pityriasis versicolorComments:Has tried selenium sulfide and ketoconazoleWill try with fluconazoleConsider derm referralAllNew Medication: Fluconazole 200 mg - 1 tablet by mouth once daily for 1 week Functional Status Description No Information Available Mental Status Description No Information Available Referrals Description No Information Available
--- OUTSIDE RECORDS SUMMARY | 2019-03-30 12:15 | XMS REPORT | Continuity of Care Document ---
:2000 External Reference #:[id number] Author Name Jairon Muller MD Address [facility] [place] [address] Care Team Providers Name Role Phone Raquel May PA Care Team Information Experimental Welder [phone] Problems Active Problems Provider Date Constipation Jairon Muller MD Onset: 01/15/2019 Generalized abdominal pain Jairon Muller MD Onset: 01/15/2019 Diarrhea Jairon Muller MD Onset: 01/15/2019 Social History Type Date Description Comments Sex Unknown Tobacco Use Start: Unknown End: Unknown Patient is a former smoker Smoking Status Reviewed: 01/15/19 Patient is a former smoker Allergies, Adverse Reactions, Alerts Description No Known Drug Allergies Medications Active Medications SIG Qnty Indications Ordering Provider Date Bupropion Hydrochloride TK 1 T PO qd Unknown ER (XL) 150mg Tablets ER 24HR Buspirone HCL TK 1 T PO Q 8 H Unknown 5mg Tablets Pra Ondansetron Dis 1 T On The Unknown 4mg Tablets Tongue Q 8 H PRF Dispers Nausea Or Vom Immunizations Description No Information Available Vital Signs Date Vital Result Comment 01/15/2019 1:22pm Height 66 inches 5'6" Weight 163.00 lb BP Systolic 141 mmHg BP Diastolic 86 mmHg Heart Rate 84 /min BMI (Body Mass Index) 26.3 kg/m2 Results Test Acquired Date Facility Test Result H/L Range Note CMP(!) 01/15/2019 [facility] Sodium(!) <pending> Potassium(!) <pending> Chloride Serum/Plasma(!) <pending> Carbon Dioxide Ser/Plasm(!) <pending> BUN - Urea Nitrogen(!) <pending> Calcium Ser/Plasma Mass/Vol(!) <pending> Creatinine Serum Mass/Vol(!) <pending> Glucose Serum(!) <pending> BUN/Creatinine Ratio(!) <pending> Albumin Serum/Plasma(!) <pending> Alkaline Phosphatase(!) <pending> Bilirubin Total Mass/Vol(!) <pending> Ast - Sgot <pending> Alt - SGPT <pending> Protein Total <pending> Amylase & Lipase 01/15/2019 [facility] Amylase(!) <pending> Lipase Ser/Plas (!) <pending> Laboratory test 01/15/2019 [facility] TSH Thyroid Stim <pending> finding Hormone(!) CBC W/Auto 01/15/2019 [facility] White Blood 6.0 10^3/uL Normal 3.5-10 Differential(!) Count .8 Red Blood Count 4.86 10^6/uL Normal 3.70-4.87 Hemoglobin 15.0 g/dL Normal 12.0-16.0 Hematocrit 43 % Normal 35-47 Mean Corpuscular Volume 89 fL Normal 80-97 Mean Corpuscular Hemoglobin 31 pg Normal 27-31 Mean Corpuscular HGB Conc 35 g/dL Normal 31-36 Red Cell Distribution Width 14 % Normal 10-15 Platelet Count 289 10^3/uL Normal 150-450 Mean Platelet Volume 8.9 fL Normal 7.4-10.4 Abs Neutrophils 3.4 10^3/uL Normal 1.5-7.7 Abs Lymphocytes 2.0 10^3/uL Normal 1.0-4.8 Abs Monocytes 0.5 10^3/uL Normal 0-0.8 Abs Eosinophils 0.1 10^3/uL Normal 0-0.6 Abs Basophils 0.0 10^3/uL Normal 0-0.2 Abs Nucleated RBC 0.0 10^3/uL Granulocyte % 56.2 % Lymphocyte % 34.1 % Monocyte % 8.6 % Eosinophil % 0.9 % Basophil % 0.2 % Nucleated Red Blood Cells % 0.0 Comp Metabolic Panel 01/15/2019 [facility] Sodium 136 mmol/L Normal 135-145 Potassium 3.8 mmol/L Normal 3.5-5.0 Chloride 101 mmol/L Normal 101-111 Co2 Carbon Dioxide 23 mmol/L Normal 22-32 Anion Gap 12 mmol/L High 2-11 Glucose 78 mg/dL Normal 70-100 Blood Urea Nitrogen 11 mg/dL Normal 6-24 Creatinine 0.83 mg/dL Normal 0.51-0.95 BUN/Creatinine Ratio 13.3 Normal 8-20 Calcium 9.7 mg/dL Normal 8.6-10.3 Total Protein 7.5 g/dL Normal 6.4-8.9 Albumin 5.1 g/dL Normal 3.2-5.2 Globulin 2.4 g/dL Normal 2-4 Albumin/Globulin Ratio 2.1 Normal 1-3 Total Bilirubin 0.70 mg/dL Normal 0.2-1.0 Alkaline Phosphatase 61 U/L Normal 34-104 Alt 13 U/L Normal 7-52 Ast 16 U/L Normal 13-39 Egfr Non- 87.6 >60 Egfr 106.0 >60 1 Laboratory test finding 01/15/2019 [facility] Amylase 27 U/L Low 29-103 Lipase 24 U/L Normal 11.0-82.0 TSH (Thyroid Stim Horm) 0.80 mcIU/mL Normal 0.34-5.60 1 Because ethnic data is not always readily available, this report includes an eGFR for both -Americans and non- Americans. The National Kidney Disease Education Program (NKDEP) does not endorse the use of the MDRD equation for patients that are not between the ages of 18 and 70, are , have extremes of body size, muscle mass, or nutritional status, or are non- or non-. According to the National Kidney Foundation, irrespective of diagnosis, the stage of the disease is based on the level of kidney function: Stage Description GFR(mL/min/1.73 m(2)) 1 Kidney damage with normal or decreased GFR 90 2 Kidney damage with mild decrease in GFR 60-89 3 Moderate decrease in GFR 30-59 4 Severe decrease in GFR 15-29 5 Kidney failure <15 (or dialysis) Procedures Description No Information Available Medical Devices Description No Information Available Encounters Description No Information Available Assessments Date Code Description Provider 01/15/2019 R19.7 Diarrhea, unspecified Jairon Muller MD 01/15/2019 R10.84 Generalized abdominal pain Jairon Muller MD 01/15/2019 K59.00 Constipation, unspecified Jairon Muller MD Plan of Treatment 01/15/2019 - Jairon Muller, MDR19.7 Diarrhea, unspecifiedNew Labs:CBC W/Auto Differential(!), Ordered: 01/15/19CMP(!), Ordered: 01/15/19TSH Thyroid Stim Hormone(!), Ordered: 01/15/19Amylase & Lipase, Ordered: 01/15/19Comments:I had a very long discussion with the patient and her mother regarding her symptoms. We did discussgeneral constipation in addition to constipation predominant irritable bowel syndrome and/or gallbladder issue. At this point I would like to get some labs and try her on probiotics and fiber in addition to increasing her fluids. She will trial this and call me back with an rguqcwS07.84 Generalized abdominal painK59.00 Constipation, unspecified Functional Status Description No Information Available Mental Status Description No Information Available Referrals Description No Information Available
--- OUTSIDE RECORDS SUMMARY | 2019-03-30 12:15 | XMS REPORT | Continuity of Care Document ---
:2000 External Reference #:[id number] Author Name Raquel May PA Address [address] [place] [address] Problems Description No Information Available Social History [...] Medications SIG Qnty Indications Ordering Date Provider Azithromycin 2 tablets by 6tabs Zaid Villagomez, 03/28/2019 250mg Tablets mouth on day 1 DO then 1 tablet on days 2-5 Selenium Sulfide apply to 180ml B36.0 Zaid [...] L30.4 Zaid Villagomez, 04/01/2018 affected area DO 842156-4.1Unit/GM-% twice daily Cream until rash resolves Buspirone HCL 1 by mouth 90tabs F41.1 Zaid Villagomez, 03/21/2018 5mg Tablets every 8 hours DO as needed for anxiety Acyclovir 1 tablet by 30tabs A60.00 Zaid Villagomez, 08/27/2017 400mg Tablets mouth three DO times daily as needed Valacyclovir HCL Take 1 Tablet 270tabs Zaid Villagomze, 08/27/2017 1gm Tablets By Mouth Three DO Times Daily as Needed History Medications Fluconazole 1 tablet by 2tabs Zaid Villagomez, 03/14/2019 - 200mg mouth once DO 03/28/2019 Tablets daily for 1 week Amoxicillin 1 pill by mouth 14tabs J01.90 Zaid Villagomez, 02/11/2019 - 875mg twice a day x 7 DO 02/18/2019 Tablets days Venlafaxine HCL ER 1 by mouth 30caps Zaid Villagomez, 01/09/2019 - every day DO 03/14/2019 75mg Caps ER 24HR Immunizations CPT Code Status Date Vaccine Reaction Lot # [id number] Given 03/21/2018 Menactra/Menveo Meningococcal Vaccine [id number] 98969 Given 03/21/2018 Meningococcal B(Bexsero)protn otrMembran [id number] Vesicle Vccn 2 dose sche Q2039 Given 03/03/2018 Flu Vaccine NOS Q2039 Given 01/05/2012 Flu Vaccine NOS 46535 Given 12/17/2009 Gardasil-9 (HPV) Nonavalent 2-[place] [address] Given 12/17/2009 Menactra/Menveo Meningococcal Vaccine 57038 Given 12/17/2009 Tdap (Adacel) Ages 7 And Above Only 61672 Given 06/14/2009 Gardasil-9 (HPV) Nonavalent 2-[place] [address] Given 06/11/2009 Gardasil-9 (HPV) Nonavalent 2-[place] [address] Given 04/01/2009 Gardasil-9 (HPV) Nonavalent 2-[place] [address] Given 07/21/2008 Hepatitis B Vac Ped/Adolescent 3 Dose Schedule 07660 Given 08/22/2007 Varicella (Chicken Pox) Immunization 92654 Given 08/22/2007 Hepatitis A, Ped/Adolescent 2 Dose NYSIIS Schedule 54056 Given 06/14/2006 Hepatitis A, Ped/Adolescent 2 Dose Schedule U-Polio Given 12/15/2003 Polio (Non Billable) Unspecified 39116 Given 12/15/2003 MMR Virus Immunization 49763 Given 12/15/2003 DTaP Immunization 6 Yrs & Younger 11519 Given 02/22/2003 Varicella (Chicken Pox) Immunization 14100 Given 02/23/2000 MMR Virus Immunization U-Polio Given 07/11/1999 Polio (Non Billable) Unspecified 41638 Given 07/11/1999 DTaP Immunization 6 Yrs & Younger 78435 Given 07/11/1999 Hib ACTHiB Vaccine 4 Dose Schedule 65651 Given 01/06/1999 Hepatitis B Vac Ped/Adolescent 3 Dose Schedule 75151 Given 01/06/1999 DTaP Immunization 6 Yrs & Younger 35447 Given 01/06/1999 Hib ACTHiB Vaccine 4 Dose Schedule 55083 Given 1998 DTaP Immunization 6 Yrs & Younger 75513 Given 1998 Hib ACTHiB Vaccine 4 Dose Schedule U-Polio Given 1998 Polio (Non Billable) Unspecified U-Polio Given 1998 Polio (Non Billable) Unspecified 54688 Given 1998 DTaP Immunization 6 Yrs & Younger 25863 Given 1998 Hib ACTHiB Vaccine 4 Dose Schedule 52564 Given 1998 Hepatitis B Vac Ped/Adolescent 3 Dose Schedule 14207 Given 1998 Hepatitis B Vac Ped/Adolescent 3 Dose Schedule 92763 Refused 08/15/2018 Meningococcal B(Bexsero)protn otrMembran Vesicle Vccn 2 dose sche Vital Signs Date Vital Result Comment 03/28/2019 3:11pm Body Temperature 99.0 F Weight 178.00 lb Heart Rate 80 /min BP Systolic 130 mmHg BP Diastolic 78 mmHg Respiratory Rate 18 /min Height 67 inches 5'7" BMI (Body Mass Index) 27.9 kg/m2 03/14/2019 9:24am Weight 175.00 lb Heart Rate 72 /min BP Systolic 126 mmHg BP Diastolic 70 mmHg Respiratory Rate 18 /min Height 67 inches 5'7" BMI (Body Mass Index) 27.4 kg/m2 Results Test Acquired Date Facility Test Result H/L Range Note Drugs Of 02/11/2019 [facility] Amphetamines,Ur NEGATIVE <1000 ng/mL Abuse,Urine-FCMG ine Barbiturates,Urine NEGATIVE <200 ng/mL Benzodiazepines, Urine NEGATIVE <200 ng/mL Bupernorphrine/Norbu,Urine NEGATIVE <10 ng/mL Cocaine Metabolites,Urine NEGATIVE <300 ng/mL Methadone,Urine NEGATIVE <300 ng/mL Opiates,Urine NEGATIVE <300 ng/mL Oxycodone,Urine NEGATIVE <100 ng/mL Phencyclidine,Urine NEGATIVE <25 ng/mL Cannabinoids,Urine POSITIVE Abnormal <50 ng/mL Urine Culture 01/28/2019 [facility] Urine Culture MIXED URETHRAL F 1, 2 (315)- - <SEE NOTE> Quantity > 100,000 CFU/mL 3 Laboratory test 01/28/2019 [facility] HIV Screen Non Reactive Non Reactive 4 finding (315)- - 4TH Gen Reflex Laboratory test 01/28/2019 [facility] CK 54 U/L Normal 26-192 finding (315)- - Troponin-I < 0.015 ng/mL 5 Comprehensive 01/28/2019 [facility] Glucose 90 mg/dL Normal 74-106 Metabolic [...] 69 U/L Normal 45-117 Culture If 01/28/2019 [facility] Culture If CULTURE TO 8 Indicated Comment (315)- - Indicated Comment FOLLO <SEE NOTE> Source: URINE, CLEAN CAT <SEE NOTE> 9 Urinalysis With 01/28/2019 [facility] Urine Color Dark- Yellow Yellow Microscopic (315)- - Urine Clarity Slightly Cloudy Clear Urine Glucose - Dipstick NEGATIVE mg/dL Negative Urine Bilirubin - Dipstick NEGATIVE Negative Urine Ketone 10 mg/dL Abnormal Negative Urine Specific [place] 1.037 High 1.010-1.030 Urine Blood NEGATIVE 0-2 [...] CAT <SEE NOTE> 10 Urine HCG 01/28/2019 [facility] Urine HCG NEGATIVE Negative 11 (Qualitative) (315)- - (Qualitative) Source: URINE, CLEAN CAT <SEE NOTE> 12 CBS W/Automated 01/28/2019 [facility] White Blood 4.5 K/ uL [...] 28.0-68.0 Lymph % 41.1 % Normal 20.0-42.0 [place] % 9.4 % Normal 4.3-13.2 Eo% 0.9 % Normal 0.0-6.6 Bas% 0.2 % Normal 0.0-1.1 Immature Grans 0.2 % Normal 0.0-5.0 NRBC % 0.0 /100WBC < 10/ 100 WBC Neut# 2.16 K/uL Normal 1.8-7.0 Lymph # 1.84 K/uL Normal 1.0-4.0 [place] # 0.42 K/uL Normal 0.3-0.9 Eos # 0.04 K/uL Normal 0.0-0.5 Baso # 0.01 K/uL Normal 0.0-0.1 Immature Grans Absolute 0.01 K/uL NRBC # 0.00 K/uL Laboratory test 01/18/2019 [facility] Monospot Negative Negative 13, 14 finding Lyme Screen w/ Reflex to WB Negative Negative 15 Urine HCG 01/08/2019 [facility] Urine HCG NEGATIVE Negative 16, 17 (Qualitative) (315)- - (Qualitative) Source: URINE, CLEAN CAT <SEE NOTE> 18 Urinalysis With 01/08/2019 [facility] Urine Color Yellow Yellow Microscopic (315)- - Urine Clarity Clear Clear Urine Glucose - Dipstick NEGATIVE mg/dL Negative Urine Bilirubin - Dipstick NEGATIVE Negative Urine Ketone 150 mg/dL Abnormal Negative Urine Specific [place] 1.028 Normal 1.010-1.030 Urine Blood NEGATIVE 0-2 [...] NOTE> 19 CBC with Auto Diff-fcmg 01/07/2019 [facility] WBC 9.4 K/uL 4.1-11.0 RBC 4.89 M/uL [...] Egfr 124 >60 25 Laboratory test 12/20/2018 [facility] Poc , Negative Negative 26 finding Urine Urine Culture And 12/20/2018 [facility] Urine Culture SEE RESULT 27, 28 Sensitivities BELOW Poc Urinalysis 12/20/2018 [facility] Poc Glucose, Negative Negative Urine Poc Bilirubin, Urine Negative Negative Poc Ketone, Urine Negative Negative Poc Specific [place], Urine 1.015 Normal 1.010-1.030 Poc Blood, Urine 3+ Abnormal Negative Poc pH, Urine 6.5 Normal 5-9 Poc Protein, Urine Negative Negative Poc Urobilinogen, Urine 0.2 Negative Poc Nitrite, Urine Negative Negative Poc Leukocytes, Urine Trace Abnormal Negative Poc Color, Urine [place] Poc Clarity, Urine Slightly Cloudy 29 1 DIZZY/FELL/HARD TIME BREATHING 2 MIXED URETHRAL [place] 3 > 100,000 CFU/mL SPECIMEN IS A MIX OF GRAM POSITIVE ORGANISMS CONSISTENT WITH SKIN VAGINAL CONTAMINATION. SUGGEST REPEAT SPECIMEN IF CLINICALLY INDICATED. 4 Performed at: RN - [facility] [address] [id number] Director Audience Marketing: Heidi Cruz MD, Phone: [phone] 5 0.0 - 0.045 ng/mL: Normal 0.046 [...] One-Step Immunoassay 12 URINE, CLEAN CATCH 13 [id number] Would you like an EBV if Monospot is Negative?: N 15 [id number] 16 ABD AND HIP PAIN/ DIZZY 17 [...] that are excreted by the kidneys. 26 Machine Clipper: [id number] Test Disclaimer: Positive bacteria, red blood cells, white blood cells, early , low specific gravity, and other factors may cause false positive or negative results. It is recommended to retest unexpected and borderline results with a serum test when applicable. If is still suspected, please repeat test after 48 to 72 hours. 27 [id number] 28 SEE RESULT BELOW Name: LAZARO RODRIGUEZ : [address]: Chayo Berman MD Acct: [id number] Unit: [id number] AGE: 18 Location: [facility] Re12/20/18 SEX: F Status: DEP ER SPEC: [id number] JAN: 12/20/18-[address] [facility] [address]: Clarisa Simon MD REQ: [id number] RECD: [id number]/21/[id number] STATUS: LUIS ROMAN DR: [facility] _ SOURCE: URINE SPDESC: ORDERED: Urine Culture COMMENTS: [id number] Procedure Result Reported Site Urine Culture Final 12/22/18- 1225 ML No Growth (<1,000 CFU/mL) * [facility] - Main Lab . END OF REPORT DEPARTMENT OF PATHOLOGY, [address] [place] [address] Thong Galdamez M.D. Director [facility] # [id number] 29 Machine Clipper: [id number] Procedures Description No Information Available Medical Devices Description No Information Available Encounters Type Date Location Provider Dx Diagnosis Office Visit 03/14/2019 Raquel Sharma PA F41.1 Generalized anxiety 9:30a disorder M25.551 Pain in RIGHT hip B36.0 Pityriasis versicolor Office Visit 02/11/2019 9:30a Raquel Sharma PA F41.1 Generalized anxiety disorder J01.90 Acute sinusitis, unspecified M25.551 Pain in RIGHT hip B36.0 Pityriasis versicolor Office Visit 01/07/2019 9:30a [facility] Raquel May PA F32.1 Major depressive disorder, single episode, moderate F41.1 Generalized anxiety disorder N94.3 Premenstrual tension syndrome R11.0 Nausea Z32.02 Encounter for test, result negative Assessments Date Code Description Provider 03/28/2019 J06.9 Acute upper respiratory infection, Raquel May PA unspecified 03/14/2019 F41.1 Generalized anxiety disorder Raquel May PA 03/14/2019 M25.551 Pain in RIGHT hip Raquel May PA 03/14/2019 B36.0 Pityriasis versicolor Raquel May PA 02/11/2019 F41.1 Generalized anxiety disorder Raquel May PA 02/11/2019 J01.90 Acute sinusitis, unspecified Raquel May PA 02/11/2019 M25.551 Pain in RIGHT hip Raquel May PA 02/11/2019 B36.0 Pityriasis versicolor Raquel May PA 02/11/2019 F41.1 Generalized anxiety disorder [facility] 01/07/2019 N94.3 Premenstrual tension syndrome Raquel May PA 01/07/2019 F32.1 Major depressive disorder, single episode, Raquel May PA moderate 01/07/2019 F41.1 Generalized anxiety disorder Raquel May PA 01/07/2019 N94.3 Premenstrual tension syndrome Raquel May PA 01/07/2019 R11.0 Nausea Raquel May PA 01/07/2019 Z32.02 Encounter for test, result negative Raquel May PA 01/07/2019 N94.3 Premenstrual tension syndrome Schedule, Laboratory 01/07/2019 N94.3 [facility]enstrual [facility] Plan of Treatment 03/28/2019 - Raquel May PAJ06.9 Acute upper respiratory infection, unspecifiedComments:Supportive care - can try mucinex, nasal sprayPush fluidsHumidifierCall with worsening/persisting symptomsFollow up:PrnAllNew Medication:Azithromycin 250 mg - 2 tablets by mouth on day 1 then 1 tablet on days 2-5 Functional Status Description No Information Available Mental Status Description No Information Available Referrals Description No Information Available
--- OUTSIDE RECORDS SUMMARY | 2019-03-30 12:15 | XMS REPORT | Continuity of Care Document ---
:2000 External Reference #:[id number] Author Name Raquel May PA Address [address] [place] [address] Problems Description No Information Available Social History [...] Medications SIG Qnty Indications Ordering Date Provider Selenium Sulfide apply to 180ml B36.0 Zaid Villagomez, 02/11/2019 2.25% affected areas DO Shampoo and lather with water; leave on for 10 minutes, then rinse thoroughly; repeat daily x 1 week Amoxicillin 1 pill by mouth 14tabs J01.90 Zaid Villagomez, 02/11/2019 875mg Tablets twice a day x 7 DO days Alprazolam 1 by mouth 15tabs F41.1 Zaid Villagomez, 02/11/2019 0.25mg Tablets daily as needed DO anxiety Venlafaxine HCL ER 1 by mouth 30caps Zaid Villagomez, 01/09/2019 75mg Caps every day DO ER 24HR Prochlorperazine Maleate 1 tablet three 30tabs R11.0 Zaid Villagomez, 01/07 10mg times daily as DO Tablets needed for nausea Bupropion Hydrochloride 1 by mouth 90tabs Zaid Villagomez, 08/15/2018 ER (XL) every day DO 150mg Tablets ER 24HR Nystatin-Triamcinolone Apply to 60gm L30.4 Zaid Villagomez, 04/01/2018 affected area DO 302798-4.1Unit/GM-% twice daily Cream until rash resolves Buspirone [...] DO Times Daily as Needed History Medications Ketoconazole apply to affected 120ml B36.0 Zaid Villagomez, 08/15/2018 - 2% Shampoo area of damp DO 02/11/2019 skin, lather, leave on 5 minutes, and rinse Immunizations CPT Code Status Date Vaccine Reaction Lot # [id number] Given 03/21/2018 Menactra/Menveo Meningococcal Vaccine [id number] 39507 Given 03/21/2018 Meningococcal B(Bexsero)protn otrMembran [id number] Vesicle Vccn 2 dose sche Q2039 Given 03/03/2018 Flu Vaccine NOS Q2039 Given 01/05/2012 Flu Vaccine NOS 25507 Given 12/17/2009 Gardasil-9 (HPV) Nonavalent 2-[place] [address] Given 12/17/2009 Menactra/Menveo Meningococcal Vaccine 47185 Given 12/17/2009 Tdap (Adacel) Ages 7 And Above Only 65496 Given 06/14/2009 Gardasil-9 (HPV) Nonavalent 2-[place] [address] Given 06/11/2009 Gardasil-9 (HPV) Nonavalent 2-[place] [address] Given 04/01/2009 Gardasil-9 (HPV) Nonavalent 2-[place] [address] Given 07/21/2008 Hepatitis B Vac Ped/Adolescent 3 Dose Schedule 96211 Given 08/22/2007 Varicella (Chicken Pox) Immunization 46933 Given 08/22/2007 Hepatitis A, Ped/Adolescent 2 Dose NYSIIS Schedule 78453 Given 06/14/2006 Hepatitis A, Ped/Adolescent 2 Dose Schedule U-Polio Given 12/15/2003 Polio (Non Billable) Unspecified 67016 Given 12/15/2003 MMR Virus Immunization 83860 Given 12/15/2003 DTaP Immunization 6 Yrs & Younger 84938 Given 02/22/2003 Varicella (Chicken Pox) Immunization 31148 Given 02/23/2000 MMR Virus Immunization U-Polio Given 07/11/1999 Polio (Non Billable) Unspecified 03417 Given 07/11/1999 DTaP Immunization 6 Yrs & Younger 55165 Given 07/11/1999 Hib ACTHiB Vaccine 4 Dose Schedule 26786 Given 01/06/1999 Hepatitis B Vac Ped/Adolescent 3 Dose Schedule 97700 Given 01/06/1999 DTaP Immunization 6 Yrs & Younger 28665 Given 01/06/1999 Hib ACTHiB Vaccine 4 Dose Schedule 03125 Given 1998 DTaP Immunization 6 Yrs & Younger 09435 Given 1998 Hib ACTHiB Vaccine 4 Dose Schedule U-Polio Given 1998 Polio (Non Billable) Unspecified U-Polio Given 1998 Polio (Non Billable) Unspecified 66782 Given 1998 DTaP Immunization 6 Yrs & Younger 15253 Given 1998 Hib ACTHiB Vaccine 4 Dose Schedule 50819 Given 1998 Hepatitis B Vac Ped/Adolescent 3 Dose Schedule 28448 Given 1998 Hepatitis B Vac Ped/Adolescent 3 Dose Schedule 42802 Refused 08/15/2018 Meningococcal B(Bexsero)protn otrMembran Vesicle Vccn 2 dose sche Vital Signs Date Vital Result Comment 02/11/2019 9:35am Body Temperature 98.6 F Weight 165.00 lb Heart Rate 78 /min BP Systolic 128 mmHg BP Diastolic 74 mmHg Respiratory Rate 18 /min Height 67 inches 5'7" BMI (Body Mass Index) 25.8 kg/m2 01/07/2019 9:24am Body Temperature 99.5 F Weight 168.00 lb Heart Rate 110 /min BP Systolic 122 mmHg BP Diastolic 72 mmHg Respiratory Rate 18 /min Height 67 inches 5'7" O2 % BldC Oximetry 99 % BMI (Body Mass Index) 26.3 kg/m2 Results Test Date Facility Test Result H/L Range Note CBS 01/28/2019 [facility] White Blood 4.5 K/uL Normal 3.1-10.7 1 W/Automated (315)- - Count Diff Red Blood Count 5.34 M/uL Normal 3.90-5.40 [...] 28.0-68.0 Lymph % 41.1 % Normal 20.0-42.0 [place] % 9.4 % Normal 4.3-13.2 Eo% 0.9 % Normal 0.0-6.6 Bas% 0.2 % Normal 0.0-1.1 Immature Grans 0.2 % Normal 0.0-5.0 NRBC % 0.0 /100WBC < 10/ 100 WBC Neut# 2.16 K/uL Normal 1.8-7.0 Lymph # 1.84 K/uL Normal 1.0-4.0 [place] # 0.42 K/uL Normal 0.3-0.9 Eos # 0.04 K/uL Normal 0.0-0.5 Baso # 0.01 K/uL Normal 0.0-0.1 Immature Grans Absolute 0.01 K/uL NRBC # 0.00 K/uL Urine HCG 01/28/2019 [facility] Urine HCG NEGATIVE Negative 2 (Qualitative) (315)- - (Qualitative) Source: URINE, CLEAN CAT <SEE NOTE> 3 Urinalysis With 01/28/2019 [facility] Urine Color Dark- Yellow Yellow Microscopic (315)- - Urine Clarity Slightly Cloudy Clear Urine Glucose - Dipstick NEGATIVE mg/dL Negative Urine Bilirubin - Dipstick NEGATIVE Negative Urine Ketone 10 mg/dL Abnormal Negative Urine Specific [place] 1.037 High 1.010-1.030 Urine Blood NEGATIVE 0-2 [...] Seen Source: URINE, CLEAN CAT <SEE NOTE> 4 Culture If 01/28/2019 [facility] Culture If CULTURE TO 5 Indicated Comment (315)- - Indicated Comment FOLLO <SEE NOTE> Source: URINE, CLEAN CAT <SEE NOTE> 6 Comprehensive 01/28/2019 [facility] Glucose 90 mg/dL Normal 74-106 Metabolic Panel (315)- - BUN 12 mg/dL Normal 7-18 Creatinine 1.1 mg/dL Normal 0.6-1.3 Glom Filtration Rate, Estimate >60 mL/min >60 If >60 mL/min >60 7 BUN/Creat 10.9 ratio Sodium 140 mmol/L Normal [...] Normal 0.2-1.0 Sgot/Ast 9 U/L Low 15-37 8 SGPT/Alt 18 U/L Normal 12-78 Alkaline Phosphatase 69 U/L Normal 45-117 Laboratory test finding 01/28/2019 [facility] CK 54 U/L Normal 26-192 (315)- - Troponin-I < 0.015 ng/mL 9 Laboratory test 01/28/2019 [facility] HIV Screen Non Reactive Non Reactive 10 finding (315)- - 4TH Gen Reflex Urine Culture 01/28/2019 [facility] Urine MIXED 11 (315)- - Culture URETHRAL F <SEE NOTE> Quantity > 100,000 CFU/mL 12 Laboratory test 01/18/2019 [facility] Monospot Negative Negative 13, 14 finding Lyme Screen w/ Reflex to WB Negative Negative 15 Urinalysis With 01/08/2019 [facility] Urine Color Yellow Yellow 16 Microscopic (315)- - Urine Clarity Clear Clear Urine Glucose - Dipstick NEGATIVE mg/dL Negative Urine Bilirubin - Dipstick NEGATIVE Negative Urine Ketone 150 mg/dL Abnormal Negative Urine Specific [place] 1.028 Normal 1.010-1.030 Urine Blood NEGATIVE 0-2 [...] Seen Source: URINE, CLEAN CAT <SEE NOTE> 17 Urine HCG 01/08/2019 [facility] Urine HCG NEGATIVE Negative 18 (Qualitative) (315)- - (Qualitative) Source: URINE, CLEAN CAT <SEE NOTE> 19 [...] 0.0 K/uL 0.0-0.3 Comprehensive Met Panel-[facility] 01/07/2019 [facility] Sodium 139 mmol/L 135- 146 20 Potassium [...] Egfr 124 >60 25 Laboratory test 12/20/2018 [facility] Poc , Negative Negative 26 finding Urine Urine Culture And 12/20/2018 [facility] Urine Culture SEE RESULT 27, 28 Sensitivities BELOW Poc Urinalysis 12/20/2018 [facility] Poc Glucose, Negative Negative Urine Poc Bilirubin, Urine Negative Negative Poc Ketone, Urine Negative Negative Poc Specific [place], Urine 1.015 Normal 1.010-1.030 Poc Blood, Urine 3+ Abnormal Negative Poc pH, Urine 6.5 Normal 5-9 Poc Protein, Urine Negative Negative Poc Urobilinogen, Urine 0.2 Negative Poc Nitrite, Urine Negative Negative Poc Leukocytes, Urine Trace Abnormal Negative Poc Color, Urine [place] Poc Clarity, Urine Slightly Cloudy 29 1 DIZZY/FELL/HARD TIME BREATHING 2 FIRST MORNING SPECIMENS GENERALLY CONTAIN THE HIGHEST CONCENTRATION OF HCG AND ARE RECOMMENDED FOR EARLY DETECTION OF . Method: [place] QuickVue One-Step Immunoassay 3 URINE, CLEAN CATCH 4 URINE, CLEAN CATCH 5 CULTURE TO FOLLOW 6 URINE, CLEAN CATCH 7 Note: Persistent reduction for 3 months or more in an eGFR <60 mL/min/1.73 m2 defines CKD. Patients with eGFR values >/=60 mL/min/1.73 m2 may also have CKD if evidence of persistent proteinuria is present. The original MDRD equation for estimated GFR is not valid for patients less than 18 years of age. Additional information may be found at www.kdoqi.org. 8 Values below the stated reference ranges of AST and ALT can be seen in normal populations. Clinical correlation is suggested. 9 0.0 - 0.045 ng/mL: Normal 0.046 - 0.5 ng/mL: Suggestive 0.6 - 1.5 ng/mL: Consistent 10 Performed at: - [facility] [address] [id number] Administrative Personal Assistant: Heidi Cruz MD, Phone: [phone] 11 MIXED URETHRAL FERNANDO 12 > 100,000 CFU/mL SPECIMEN IS A MIX OF GRAM POSITIVE ORGANISMS CONSISTENT WITH SKIN VAGINAL CONTAMINATION. SUGGEST REPEAT SPECIMEN IF CLINICALLY INDICATED. 13 [id number] Would you like an EBV if Monospot is Negative?: N 15 [id number] 16 ABD AND HIP PAIN/ DIZZY 17 URINE, CLEAN CATCH 18 FIRST MORNING SPECIMENS GENERALLY CONTAIN THE HIGHEST CONCENTRATION OF HCG AND ARE RECOMMENDED FOR EARLY DETECTION OF . Method: [place] QuickVue One-Step Immunoassay 19 URINE, CLEAN CATCH 20 Updated reference [...] that are excreted by the kidneys. 26 [employer] Machinist: [id number] Test Disclaimer: Positive bacteria, red blood cells, white blood cells, early , low specific gravity, and other factors may cause false positive or negative results. It is recommended to retest unexpected and borderline results with a serum test when applicable. If is still suspected, please repeat test after 48 to 72 hours. 27 [id number] 28 SEE RESULT BELOW Name: LAZARO RODRIGUEZ : [address]: Chayo Berman MD Acct: [id number] Unit: [id number] AGE: 18 Location: [facility] Re12/20/18 SEX: F Status: DEP ER SPEC: [id number] JAN: 12/20/18-[address] [facility] [address]: Clarisa Simon MD REQ: [id number] RECD: 12/21/18-064 STATUS: LUIS ROMAN DR: Raquel Brand [facility] _ SOURCE: URINE SPDESC: ORDERED: Urine Culture COMMENTS: [id number] Procedure Result Reported Site Urine Culture Final 12/22/18- 1225 ML No Growth (<1,000 CFU/mL) * ML - Main Lab . END OF REPORT DEPARTMENT OF PATHOLOGY, [address] [place] [address] Thong Galdamez M.D. Director [facility] # [id number] 29 [employer] Machinist: [id number] Procedures Date Code Description Status 08/15/2018 81263 Brief Emotional/Behav Assessment W/ Scoring Doc Per Completed Standard Inst Medical Devices Description No Information Available Encounters Type Date Location Provider Dx Diagnosis Office Visit 01/07/2019 Raquel Sharma PA F32.1 Major depressive 9:30a disorder, single episode, moderate F41.1 Generalized anxiety disorder N94.3 Premenstrual tension syndrome R11.0 Nausea Z32.02 Encounter for test, result negative Office Visit 08/26/2018 3:00p Raquel Sharma PA M25.512 Pain in LEFT shoulder M25.512 Pain in LEFT shoulder Office Visit 08/15/2018 11:30a Raquel Sharma PA B36.0 Pityriasis versicolor F32.1 Major depressive disorder, single episode, moderate Assessments Date Code Description Provider 02/11/2019 F41.1 Generalized anxiety disorder Raquel May PA 02/11/2019 J01.90 Acute sinusitis, unspecified Raquel May PA 02/11/2019 M25.551 Pain in RIGHT hip Raquel May PA 02/11/2019 B36.0 Pityriasis versicolor Raquel May PA 01/07/2019 N94.3 Premenstrual tension [...] Schedule, Laboratory 01/07/2019 N94.3 Premenstrual tension syndrome [facility] 08/26/2018 M25.512 Pain in LEFT shoulder Raquel May PA 08/26/2018 M25.512 Pain in LEFT shoulder Raquel May PA 08/15/2018 B36.0 Pityriasis versicolor Raquel May PA 08/15/2018 F32.1 Major depressive disorder, single episode, Raquel May PA moderate Plan of Treatment Future Appointment(s):03/14/2019 9:30 am - Raquel May PA at [facility]2018 - Raquel May, PAF41.1 Generalized anxiety disorderNew Medication: Alprazolam 0.25 mg - 1 by mouth daily as needed anxietyComments:Will refill xanaxFollow up:1 month f/u ugablbqJ12.90 Acute sinusitis, unspecifiedNew Medication:Amoxicillin 875 mg - 1 pill by mouth twice a day x 7 daysComments: With duration of symptoms, ? bacterialPush fluidsTylenol/motrin as needed for fever/painAmox as prescribedSinus rinse as neededCall with any questions or ricmyftwA10.551 Pain in RIGHT hipNew Orders:Physical Therapy, Ordered: Comments:Will refer for PTB36.0 Pityriasis versicolorNew Medication:Selenium Sulfide 2.25 % - apply to affected areas and lather with water; leave on for 10 minutes, then rinse thoroughly; repeat daily x 1 weekComments:Will treat with selenium sulfide Functional Status Description No Information Available Mental Status Description No Information Available Referrals Description No Information Available
[2019-03-30 12:21] VITALS: BP 114/83
--- NOTE | 2019-03-30 12:30 | UC ---
FLU HPI - HPI Summary HPI Summary: 18 y/o female presents to the urgent care c/o nasal congestion, w/ clear nasal discharge body aches, chills, fever, PATEL, and a dry cough for the past 2 days. Pt reports she went to see her PCP 2 days ago since her boyfriend has been w/ bronchitis for the past week. Her PCP Rx Z-denis, but she is not improving and she believes she has the flu. She has been taken the antibiotic which she started yesterday. Pt also fell down down 5 steps this morning and injured her lower back and both hips. She reports she slipped and slide down the 5 steps and her tailbone is hurting a lot. She took Ibuprofen 200mg PO, but her pain still 8/10 constant and sharp around tailbone. NO LOC or head injury. She is walking w/ limping, but denies numbness or tingling sensation over the lower legs, saddle anesthesia, urinary and fecal incontinence, urinary symptoms, flank pain, abdominal pain, SOB, dizziness, chest pain, abdominal pain, N/V/D. - History of Current Complaint Chief Complaint: UCGeneralIllness Stated Complaint: COUGH, CONGESTION Time Seen by Provider: 03/30/19 12:29 Hx Obtained From: Patient Hx Last Menstrual Period: 03/29/19 Onset/Duration: Gradual Onset, Lasting Days - 2 days, Still Present Severity Currently: Moderate Severity Initially: Moderate Pain Intensity: 8 - tailbone pain and B/L hip pain Pain Scale Used: 0-10 Numeric Associated Signs & Symptoms: Positive: Fever, Myalgia, Cough - productive, Nasal Congestion - clear, Headache - Risk Factors Influenza Risk Factors: Negative - Allergy/Home Medications Allergies/Adverse Reactions: Allergies Allergy/AdvReac Type Severity Reaction Status Date / Time No Known Allergies Allergy Verified 03/30/19 12:21 Home Medications: Home Medications ALPRAZolam TAB* [Xanax TAB*] 0.25 mg PO DAILY PRN 03/30/19 [History Confirmed ] PMH/Surg Hx/FS Hx/Imm Hx Previously Healthy: Yes Psychological History: Depression - Surgical History Surgical History: Yes Surgery Procedure, Year, and Place: T&A, ~2002, [facility] [place] - Family History Known Family History: Positive: None - Pt denies PMHX, Non-Contributory - Social History Occupation: Student Lives: With Family Alcohol Use: None Substance Use Type: None Smoking Status (MU): Never Smoked Tobacco - Immunization History Most Recent Influenza Vaccination: Not the 2014/2015 Season Vaccination Up to Date: Yes Review of Systems All Other Systems Reviewed And Are Negative: Yes Constitutional: Positive: Fever, Chills, Other - body aches Skin: Positive: Negative Eyes: Positive: Negative ENT: Positive: Nasal Discharge - clear, Sinus Congestion, Other - PND Respiratory: Positive: Cough - productive w/ clear phlegm Cardiovascular: Positive: Negative Gastrointestinal: Positive: Negative Genitourinary: Positive: Negative Motor: Positive: Negative Neurovascular: Positive: Negative Musculoskeletal: Positive: Decreased ROM - lower back, Myalgia, Other: - lower back pain, tailbone pain, B/L hip pain s/p fall Neurological: Positive: Headache Psychological: Positive: Negative Is Patient Immunocompromised?: No Physical Exam - Summary Physical Exam Summary: Vital Signs Reviewed: Yes Appearance: Well-Appearing, Well-Nourished, female adolescent sitting in the examining table w/o any apparent distress. Eyes: Positive: Conjunctiva Clear - PERRLA, EOMI. ENT: Positive: Normal ENT inspection, Hearing grossly normal, Pharynx normal, TMs normal, Uvula midline. clear PND, edematous nasal mucosa w/ clear nasal discharge. Neck: Positive: Supple, Nontender, No Lymphadenopathy Respiratory: Positive: Chest non-tender, Lungs clear, Normal breath sounds, No respiratory distress Cardiovascular: Positive: RRR, No Murmur, Pulses Normal, Brisk Capillary Refill Abdomen Description: Positive: Nontender, No Organomegaly, Soft. Negative: CVA Tenderness (R), CVA Tenderness (L) Bowel Sounds: Positive: Present Musculoskeletal: Positive: Strength Intact, BACK: Patient walked into the urgent care room with symmetric ambulation, mild limping, antalgic, able to bear weight. No signs of trauma, No masses palpated, no ecchymosis or bruises observed. Point tenderness at the level of L3-S1 and coccyx, positive paraspinal muscle tenderss at the same level, No CVAT, no flank ecchymosis . No sacroiliac notch tenderness, No saddle anesthesia.ROM: limited due to pain, Straight Leg Raise: negative. Patellar reflexes: brisk, symmetric Muscle strength lower extremities. Dorsiflexion/ plantar flexion of ankles. Heel/ toe walk. Lower extremities: Femoral, popliteal, posterior tibial, and dorsalis pedis pulses WNL. Pt refuse rectal exam. B/L Hips: Pt is able to ambulate with mild limp, or antalgic gait. No surface trauma, ecchymosis. No erythema, warmth. No deformity, crepitus, or obvious asymmetry of hips. No Tenderness to palpation over the symphysis pubis, ischial bone, trochanter, SI notch, buttocks, quadriceps, femoral triangle, inguinal ligament. Point tenderness on LF lateral side of the hip below the iliac crest. No inguinal lymphadenopathy. FROM limited due to pain. Distal motor and neurovascular status are intact. Neurological: Positive: Alert, Muscle Tone Normal Psychological Exam: Normal Skin Exam: Normal Triage Information Reviewed: Yes Vital Signs: Initial Vital Signs Temp 98.3 F 03/30/19 12:16 Pulse 96 03/30/19 12:16 Resp 18 03/30/19 12:16 BP 114/83 03/30/19 12:16 Pulse Ox 100 03/30/19 12:16 Flu Course/Dx - Course Course Of Treatment: 18 y/o female presents to the urgent care c/o nasal congestion, w/ clear nasal discharge body aches, chills, fever, PATEL, and a dry cough for the past 2 days. Pt reports she went to see her PCP 2 days ago since her boyfriend has been w/ bronchitis for the past week. Her PCP Rx Z-denis, but she is not improving and she believes she has the flu. She has been taken the antibiotic which she started yesterday. Pt also fell down down 5 steps this morning and injured her lower back and both hips. She reports she slipped and slide down the 5 steps and her tailbone is hurting a lot. She took Ibuprofen 200mg PO, but her pain still 8/10 constant and sharp around tailbone. NO LOC or head injury. She is walking w/ limping, but denies numbness or tingling sensation over the lower legs, saddle anesthesia, urinary and fecal incontinence, urinary symptoms, flank pain, abdominal pain, SOB, dizziness, chest pain, abdominal pain, N/V/D. Hx obtained.Pt is hemodynamically stable, A&OX3, Vitals: WNL. Pt given Ibuprofen 600mg PO by the nurse to alleviate symptoms. Rapid Influenza A&B: negative. Chest X-ray orderd to r/o any abnormality. Impression: No acute cardiopulmonary disease observed. Pt w/ possible Viral syndrome. Point tenderness at the level of the L3-S1 and coccyx and B/L paraspinal muscle spasm at the same level, also point tenderness on LF lateral side of the hip below the iliac crest. on examination. Pt declined test since she has her period now. Lumbosacral and B/L hip X-ray ordered, Impression: No acute osseous injury observed. Naproxen PO ordered at the clinic. Given by nurse. Pt tolerated well medication pain decrease. Pt Tessalon tabs PO and Ibuprofen PO, l. Patient was instructed to the f/u with orthopedic Sports Medicine in 3 days for further evaluation and treatment in her back pain. Patient understands and agrees. Patient is able to ambulate freely w/o aid or limp. Plan of care was discussed with the patient and patient understands and agrees. All questions were answered at patient satisfaction. Pt left clinic hemodynamically stable. - Differential Dx/Diagnosis Differential Diagnosis/HQI/PQRI: Influenza, Pneumonia, Upper Respiratory Infection, Other - lower back fracture, B/L hip fracture, tendonitis, back strain, Provider Diagnosis: Lower back injury, Pain of both hip joints, Acute viral syndrome, Low back strain, Injury of coccyx Discharge ED - Sign-Out/Discharge Documenting (check all that apply): Patient Departure - D/C home All imaging exams completed and their final reports reviewed: Yes - Discharge Plan Condition: Stable Disposition: HOME Prescriptions: Benzonatate CAP* [Tessalon 100 MG CAP*] 100 mg PO TID #21 cap Ibuprofen TAB* [Motrin TAB* 800 MG] 800 mg PO Q6H PRN #30 tab PRN Reason: moderate pain Patient Education Materials: Coccyx Injury (ED), Low Back Strain (ED), Viral Syndrome (ED) Referrals: Raquel May PA [Primary Care Provider] - 3 Days [facility] [Provider Group] - 3 Days Additional Instructions: 1- Please take Ibuprofen PO q6-8hrs prn after meals for pain and swelling. 2-- Wear a back support and use a donut-shape cushion to alleviate pain is your coccyx. Apply ice and Avoid strenuous exercise or heavy lifting. 3- Please follow up with Orthopedic Dr from Sport Medicine or your PCP in 3 days if not improvement of symptoms for further management. 4- Rapid influenza is negative. Increase fluid intake, eat well, rest and avoid strenuous exercise. 5- Take Tessalon tabs PO as directed and finishe the Zpak as directed by your PCP. - Billing Disposition and Condition Condition: STABLE Disposition: Home
[2019-03-30] MEDS ORDERED: Ibuprofen TAB* 600 MG PO ONE (12:51)
[2019-03-30 13:13] LABS: Influenza A Molecular NEGATIVE (Negative); Influenza B Molecular NEGATIVE (Negative)
== END 2019-03-30 14:16 | disposition home or self-care (01) ==
LOC: UCCORT 11:36
DX: S39.012A Strain of muscle, fascia and tendon of lower back, initial encounter (principal); S39.92XA Unspecified injury of lower back, initial encounter; B34.9 Viral infection, unspecified; F32.9 Major depressive disorder, single episode, unspecified; M25.552 Pain in left hip; M25.551 Pain in right hip; J34.89 Other specified disorders of nose and nasal sinuses; R51 Headache; R05 Cough; W18.39XA Other fall on same level, initial encounter; Y92.9 Unspecified place or not applicable
CPT/HCPCS: 71046; 72110; 73523; 99212; A9270-GY; G0463

== ENCOUNTER 2019-06-22 18:20 | Emergency (ER) | payer OTHER ==
[2019-06-22 18:54] VITALS: BP 121/77
--- NOTE | 2019-06-22 19:15 | UC ---
Dental HPI - HPI Summary HPI Summary: 18-year-old female presents with 3 day history of right upper dental pain. States has noted some mild facial swelling. Has been taking ibuprofen with very little relief the pain. Has an appointment with the dentist tomorrow. Denies fever, chills, dental drainage, or trismus. - History of Current Complaint Chief Complaint: UCDentalProblem Stated Complaint: DENTAL PAIN Time Seen by Provider: 06/22/19 18:57 Hx Obtained From: Patient Hx Last Menstrual Period: 03/29/19 Pain Intensity: 9 - Allergies/Home Medications Allergies/Adverse Reactions: Allergies Allergy/AdvReac Type Severity Reaction Status Date / Time No Known Allergies Allergy Verified 06/22/19 18:52 Home Medications: Home Medications Amoxicillin/Clavulanate TAB* [Augmentin TAB 875*] 875 mg PO BID #20 tab [Rx] PMH/Surg Hx/FS Hx/Imm Hx Previously Healthy: Yes - Denies signigicant PMH - Surgical History Surgical History: Yes Surgery Procedure, Year, and Place: T&A, ~2002, [facility] [place] [facility] [place] - Family History Known Family History: Negative: Hypertension - Social History Occupation: Employed Full-time Lives: With Family Alcohol Use: None Substance Use Type: None Smoking Status (MU): Never Smoked Tobacco - Immunization History Most Recent Influenza Vaccination: Not the 2014/2015 Season Vaccination Up to Date: Yes Review of Systems All Other Systems Reviewed And Are Negative: Yes Constitutional: Negative: Fever, Chills ENT: Positive: Dental Pain - See HPI. Negative: Sore Throat, Ear Ache, Nasal Discharge, Sinus Congestion, Sinus Pain/Tenderness Respiratory: Positive: Negative Cardiovascular: Positive: Negative Gastrointestinal: Positive: Negative Genitourinary: Positive: Negative Musculoskeletal: Positive: Negative Neurological/Mental Status: Positive: Negative Is Patient Immunocompromised?: No Physical Exam - Summary Physical Exam Summary: GENERAL APPEARANCE: Well developed, well nourished, alert and cooperative, and appears to be in no acute distress. HEAD: No facial swelling noted. MOUTH/THROAT: Pharynx normal. Surgically absent tonsils. Uvula midline. Dental nico noted to the 1st right upper molar with some mild gingival erythema without induration, fluctuance, or drainage. No trismus. NECK: Neck supple, non-tender without lymphadenopathy. CARDIAC: Normal S1 and S2. No S3, S4 or murmurs. Rhythm is regular. There is no peripheral edema, cyanosis or pallor. Extremities are warm and well perfused. Capillary refill is less than 2 seconds. Peripheral pulses intact. LUNGS: Clear to auscultation without rales, rhonchi, wheezing or diminished breath sounds. ABDOMEN: Positive bowel sounds. Soft, nondistended, nontender. No guarding or rebound. No masses or hepatosplenomegally. MUSKULOSKELETAL: ROM intact to all extremities. No joint erythema or tenderness. Normal muscular development. Normal gait. SKIN: Skin normal color, texture and turgor with no lesions or eruptions. Triage Information Reviewed: Yes Vital Signs: Initial Vital Signs Temp 98.5 F 06/22/19 18:50 Pulse 82 06/22/19 18:50 Resp 16 06/22/19 18:50 BP 121/77 06/22/19 18:50 Pulse Ox 99 06/22/19 18:50 Vital Signs Reviewed: Yes Dental Complaint Course/Dx - Course Course Of Treatment: 18-year-old female presents with 3 day history of right upper dental pain. States has noted some mild facial swelling. Has been taking ibuprofen with very little relief the pain. Has an appointment with the dentist tomorrow. Denies fever, chills, dental drainage, or trismus. Afebrile. Vital signs stable. Patient had no obvious facial swelling, dental nico noted to the 1st right upper molar with some mild gingival erythema without induration, fluctuance, or drainage, no trismus, and otherwise unremarkable exam. We'll start her on Augmentin 875 mg twice a day 10 days for a likely dental infection. She was given the first dose in the clinic. Recommending over-the- counter analgesics as needed for pain. She is to keep her appointment with her dentist as scheduled tomorrow. Anticipatory guidance and warning symptoms reviewed with the patient. Verbalizes understanding and agrees with plan of care. - Differential Dx/Diagnosis Differential Diagnosis/Dx: Dental Abscess, Dental Caries, Fractured Tooth, Odontogenic Pain, Peridontic Disease Provider Diagnosis: Pain, dental Discharge ED - Sign-Out/Discharge Documenting (check all that apply): Patient Departure All imaging exams completed and their final reports reviewed: No Studies - Discharge Plan Condition: Stable Disposition: HOME Prescriptions: Amoxicillin/Clavulanate TAB* [Augmentin TAB 875*] 875 mg PO BID #20 tab Patient Education Materials: Toothache (ED) Forms: *Work Release Referrals: Raquel May PA [Primary Care Provider] - Additional Instructions: Start Augmentin 875 mg 1 tab twice a day for 10 days. Take with food to avoid upset stomach. Be sure to complete the entire course even if feeling better. We gave you the first dose in the clinic tonight. Take acetaminophen (Tylenol) or ibuprofen (Advil, Motrin) according to directions as needed for pain. Be sure to rinse your mouth out with a warm salt water solution after every time you eat to remove any debris. Keep your appointment with your dentist as scheduled tomorrow. Seek immediate medical attention in the emergency room if you develop fever greater than 100.5 F, you are unable to open of close your mouth, are unable to swallow, have difficulty breathing, or any worsening of symptoms. - Billing Disposition and Condition Condition: STABLE Disposition: Home
[2019-06-22] MEDS ORDERED: Amoxicillin/Clavulanate TAB* 875 MG PO ONE (19:19)
== END 2019-06-22 19:29 | disposition home or self-care (01) ==
LOC: UCCORT 18:20
DX: K08.89 Other specified disorders of teeth and supporting structures (principal)
CPT/HCPCS: 99212; A9270-GY; G0463